=== PATIENT | female | born 1995 | race Caucasian/White ===

== ENCOUNTER 2022-03-28 16:19 | Emergency (ER) | payer MEDICAID, SELFPAY ==
[2022-03-28 16:49] VITALS: BP 128/74; PULSE 105; RESP 18; TEMP 37.6; O2SAT 99; BMI 32.2
--- NOTE | 2022-03-28 18:10 | ECG_ITS ---
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 Measurements Intervals [place] Rate: 78 P: 65 [place]: 165 QRS: 79 QRSD: 91 T: 72 QT: 391 QTc: 447 Interpretive Statements SINUS RHYTHM No previous ECG available for comparison Electronically Signed On 03-28-2022 19:41:00 CDT by Moe Mckeon M.D. [id number]
--- NOTE | 2022-03-28 18:11 | ED_ITS ---
HPI - Dizziness General: Chief Complaint: Dizziness Stated Complaint: Weakness, cant eat Time Seen by Provider: 03/28/22 17:42 Source: patient Mode of arrival: ambulatory Limitations: no limitations History of Present Illness: HPI Narrative: This patient presents to the emergency department because she had an episode where she felt lightheaded transiently with position change this evening. Over the past weeks she has had which she states is approximately 30+ pound weight lo ss. She states that sometimes when she eats she feels like she cannot swallow well. And feels like she gets full easily. She states that she had episodes like this in the past and told she had a polyp. She states that she was admitted to a mental health facility in November and put on medication she has not taken before but she does know where that is a factor in her current presentation or not. She does admit to having ongoing anxiety which is even made worse by the fact is that she feels like she is losing too much weight and wonders why that is occurring. She denies any change in her bowel habits to include bloody stools, melanotic stools etc. She states that she is no history of thyroid dysfunction. She does smoke tobacco but denies alcohol. No street drugs. She denies stimulants or excessive caffeine etc. She lives with her children and her spouse. She denies any history of syncope, palpitations chest pain etc. She is currently on her menstrual period. She relates that she has a history of diabetes and has episodes of tingling in her extremities and time to time but sometimes this is when she has an anxiety attack. Other times she has excessive paresthesias or tingling in her lower extremities not associated with what she deems as panic attacks. MD elicited complaint: lightheadedness Associated symptoms: Denies chest pain, chills, headache(s), nausea, nasal congestion, palpitations, syncope or vomiting Associated neuro symptoms: Reports numbness in extremities Review of Systems Const: Denies: fever(s), chills or body aches Eyes: Denies: change in vision ENMT: Denies: throat pain, odynophagia, hoarseness, dental pain or nasal congestion Card: Denies: chest pain, palpitations, irregular heart rhythm, syncope or pre-syncope Resp: Denies: dyspnea, productive cough or non-productive cough GI: Denies: abdominal pain, nausea, vomiting or hematemesis : Denies: flank pain, difficulty voiding, dysuria or urinary frequency Musc: Denies: neck pain, back pain, extremity pain or extremity swelling Skin/Breast: Denies: rash Neuro: Reports: numbness in extremities; Denies: headache(s), weakness in extremities, vertigo or Slurred speech present Psych: Reports: anxiety, depression, mood swings, panic attacks and sleeping less; Denies: visual hallucinations, auditory hallucinations or suicidal ideation Endo: Denies: polyuria or polydipsia All/Imm: Denies: urticaria PFSH ED PFSH: Social History Smoking and tobacco status: never smoked Physical Exam Const: COMMON NORMALS: patient oriented x3 GENERAL APPEARANCE: anxious HENMT: COMMON NORMALS: normocephalic, Normal nasal mucous membranes and turbinates present and moist oral mucous membranes HEAD & SCALP: normocephalic NOSE: Normal nasal mucous membranes and turbinates present Eye: COMMON NORMALS: Equal, round and reactive pupils present, EOMs intact bilaterally and conjunctivae normal CONJUNCTIVA: Yes conjunctivae normal PUPIL: Yes Equal, round and reactive pupils present Neck/C-Spine: COMMON NORMALS: full ROM, supple, Thyroid normal and No carotid bruits THYROID: Thyroid normal Chest: COMMONS NORMALS: normal inspection of the chest Resp: COMMON NORMALS: normal respiratory effort, No use of accessory muscles and clear to auscultation bilaterally AUSCULTATION: clear to auscultation bilaterally Cardio: COMMON NORMALS: regular rate, regular rhythm, No gallops present (Cardio), No murmurs present (Cardio) and Peripheral pulses 2+ throughout RATE: regular rate RHYTHM: regular rhythm PERIPHERAL PULSES: Peripheral pulses 2+ throughout GI: COMMON NORMALS: Normal to inspection, nondistended, normoactive bowel sounds present, Soft to palpation and non-tender PALPATION: Yes Soft to palpation : COMMON NORMALS: Yes no CVA tenderness BLADDER/KIDNEY EXAM: Yes no CVA tenderness Back/Pelvis: COMMON NORMALS: no CVA tenderness, thoracic and lumbar spine normal to inspection, no thoracic nor lumbar tenderness and thoraco-lumbar ROM normal Extremity: COMMON NORMALS: normal to inspection Neuro: COMMON NORMALS: patient oriented x3 Course Reevaluation(s): Reevaluation #1: Patient is currently clinically stable. No new findings on reevaluation. I discussed findings with patient and recommendations for follow-up. Time: 20:30 Vital Signs: Vital signs: Vital Signs Temperature 99.6 F 03/28/22 16:49 Pulse Rate 98 03/28/22 20:00 Respiratory Rate 18 03/28/22 16:49 Blood Pressure 117/61 03/28/22 20:00 Pulse Oximetry 100 03/28/22 20:00 MDM - Dizziness Medical Decision Making Patient's clinical and ancillary evaluation in the emergency department are unrevealing for any ongoing acute pathology at this time. Resting EKG is reassuring and her monitor did not reveal any evidence of arrhythmias. Her screening laboratories this evening are also reassuring without any evidence of electrolyte perturbation, anemia etc. It is unclear as to the etiology of her swallowing whether its physical abnormality or more mental health related etc. The neck step given that she is clinically stable at this time will be referral for endoscopy. She will also need a primary [place] health care facility for further follow-up and referral as indicated. Beto current findings with patient and also advised her of follow-up recommendations. She acknowledged our discussion. Stable for discharge at this time. Consultation to clinical social worker performed. Medical Records I reviewed the patient's medical records. Lab Data I reviewed the patient's lab results. Urinalysis results represents current status of menstruation. : 03/28/22 18:55 03/28/22 18:55 Laboratory Results WBC 8.6 10^3/uL (4.0-10.0) 03/28/22 18:55 RBC 4.65 10^6/uL (4.1-5.3) 03/28/22 18:55 Hgb 13.2 g/dL (11.5-15.3) 03/28/22 18:55 Hct 37.5 % (37.0-47.0) 03/28/22 18:55 MCV 80.6 fl (81-99) L 03/28/22 18: MCH 28.4 pg (28.0-34.0) 03/28/22 18: MCHC 35.2 g/dL (30.0-36.0) 03/28/22 18:55 RDW 13.2 % (12.1-15.1) 03/28/22 18:55 Plt Count 259 10^3/cmm (130-400) 03/28/22 18:55 MPV 10.2 fL (7.4-10.4) 03/28/22 18:55 Neut % (Auto) 58.7 % 03/28/22 18:55 Lymph % (Auto) 34.3 % 03/28/22 18:55 [place] % (Auto) 4.9 % 03/28/22 18:55 Eos % (Auto) 1.1 % 03/28/22 18:55 Baso % (Auto) 0.6 % 03/28/22 18:55 Neut # (Auto) 5.03 10^3/uL (1.8-7.7) 03/28/22 18:55 Lymph # (Auto) 2.9 10^3/uL (0.8-4.8) 03/28/22 18:55 [place] # (Auto) 0.4 10^3/uL (0.2-0.9) 03/28/22 18:55 Eos # (Auto) 0.1 10^3/uL (0.0-0.8) 03/28/22 18:55 Baso # (Auto) 0.1 10^3/uL (0.0-0.1) 03/28/22 18:55 Nucleated RBC % (auto) 0 % 03/28/22 18: Nucleated RBCs # 0.0 /100WBC 03/28/22 18:55 Sodium 140 mmol/L (136-145) 03/28/22 18:55 Potassium 4.0 mmol/L (3.5-5.1) 03/28/22 18:55 Chloride 102 mmol/L (98-107) 03/28/22 18:55 Carbon Dioxide 22 mmol/L (22-29) 03/28/22 18:55 Anion Gap 20.0 (5-19) H 03/28/22 18:55 BUN 9 mg/dL (6-20) 03/28/22 18:55 Creatinine 0.8 mg/dL (0.5-0.9) 03/28/22 18:55 GFR Calculation 86.0 mL/min (90-130) L 03/28/22 18:55 Glucose 79 mg/dL (65-115) 03/28/22 18:55 Calculated Osmolality 288 mOsm/kg (285-295) 03/28/22 18:55 Calcium 10.0 mg/dL (8.5-10.5) 03/28/22 18:55 Total Bilirubin 0.3 mg/dL (0.15-1.2) 03/28/22 18:55 AST 18 U/L (0-32) 03/28/22 18:55 ALT 20 U/L (0-33) 03/28/22 18:55 Alkaline Phosphatase 71 IU/L (35-105) 03/28/22 18:55 Total Protein 7.7 g/dL (6.6-8.7) 03/28/22 18:55 Albumin 5.2 g/dL (3.5-5.2) 03/28/22 18:55 Globulin 2.5 g/dL (1.3-4.6) 03/28/22 18:55 TSH 0.93 uIU/mL (0.27-4.20) 03/28/22 18:55 HCG, Qual Negative (Negative) 03/28/22 19:45 Urine Color Yellow (Yellow) 03/28/22 19:45 Urine Appearance Hazy (CLEAR) A 03/28/22 19:45 Urine pH 5 (5-7) 03/28/22 19:45 Ur Specific [place] 1.020 (1.005-1.030) 03/28/22 19:45 Urine Protein 1+ (Negative) H 03/28/22 19:45 Urine Glucose (UA) Norm (Normal) 03/28/22 19:45 Urine Ketones 3+ (Negative) H 03/28/22 19:45 Urine Blood 3+ (Negative) H 03/28/22 19:45 Urine Nitrate Negative (Negative) 03/28/22 19:45 Urine Bilirubin 1+ (Negative) H 03/28/22 19:45 Urine Urobilinogen 1 mg/dL (Negative) H 03/28/22 19:45 Ur Leukocyte Esterase Negative (Negative) 03/28/22 19:45 Urine RBC >100 /hpf (0-2) H 03/28/22 19:45 Urine WBC 0-4 /hpf (0-5) H 03/28/22 19:45 Ur Squamous Epith Cells 5-10 /hpf (0-5) H 03/28/22 19:45 Amorphous Sediment Not Reportable 03/28/22 19:45 Urine Bacteria Trace /hpf (NONE) 03/28/22 19:45 Urine Mucus 1+ /hpf 03/28/22 19:45 EKG Data EKG 1: I personally reviewed and interpreted this EKG as follows: EKG interpretation time: 18:49 Interpretation: Patient has normal sinus rhythm. Ventricular rate of 78 bpm. [place] intervals normal. QRS duration normal. QTc is within normal range. [place] are normal as well. No acute ST-T wave changes noted. Discharge Plan Discharge Patient Disposition: Home Clinical Impression: Abnormal swallowing Condition: Stable Prescriptions: No Action doxycycline hyclate 100 mg tablet 100 mg PO BID 10 Days Qty: 20 0RF Discharge Orders: Discharge ED (Routine); Ordered 03/28/22 Ordered By: Ho Del Valle Discharge Diet: Low Cholesterol, GI Soft and Full LIquid Discharge Activity: Increase activity as tolerated Patient Instructions: Opioid Safety Activity Restrictions/Additional Instructions: Continue with efforts to use protein shakes and other full liquid diet to ensure adequate nutrition. Also purchase sports drinks to help supplement electrolytes. director of ancillary services and case management should be contacting you in the coming week to discuss referral for endoscopy. Should you develop persistent worsening or any other concerning symptoms return to this or the nearest emergency department. Arrange follow-up with a primary care physician for ongoing care. Coding Level of Care Code ED Cashier Courtesy Booth for Chg Fwd Exam Comprehensive
[2022-03-28 18:53] VITALS: BP 117/76; PULSE 99; O2SAT 100
[2022-03-28 19:00] VITALS: BP 117/76; PULSE 99; O2SAT 100
[2022-03-28] MEDS: sodium chloride 0.9% 1,000 ML 999 ML IV (19:06)
[2022-03-28 19:08] LABS: Basophils # 0.1 10^3/uL (0.0-0.1); Basophils % 0.6 %; Eosinophils # 0.1 10^3/uL (0.0-0.8); Eosinophils % 1.1 %; Hematocrit 37.5 % (37.0-47.0); Hemoglobin 13.2 g/dL (11.5-15.3); Lymphocytes # 2.9 10^3/uL (0.8-4.8); Lymphocytes % 34.3 %; Mean Corpuscular HGB Conc 35.2 g/dL (30.0-36.0); Mean Corpuscular Hemoglobin 28.4 pg (28.0-34.0); Mean Corpuscular Volume 80.6 fl (81-99); Mean Platelet Volume 10.2 fL (7.4-10.4); Monocytes # 0.4 10^3/uL (0.2-0.9); Monocytes % 4.9 %; Neutrophils # 5.03 10^3/uL (1.8-7.7); Neutrophils % 58.7 %; Nucleated Red Blood Cells % 0 %; Platelet Count 259 10^3/cmm (130-400); Red Blood Count 4.65 10^6/uL (4.1-5.3); Red Cell Distribution Width 13.2 % (12.1-15.1); White Blood Count 8.6 10^3/uL (4.0-10.0)
[2022-03-28 19:35] LABS: Alanine Aminotransferase 20 U/L (0-33); Albumin Level 5.2 g/dL (3.5-5.2); Alkaline Phosphatase 71 IU/L (35-105); Aspartate Amino Transferase 18 U/L (0-32); Blood Urea Nitrogen 9 mg/dL (6-20); Carbon Dioxide 22 mmol/L (22-29); Chloride 102 mmol/L (98-107); Globulin 2.5 g/dL (1.3-4.6); Glucose 79 mg/dL (65-115); Osmolality Calculated 288 mOsm/kg (285-295); Sodium 140 mmol/L (136-145); Thyroid Stimulating Hormone 0.93 uIU/mL (0.27-4.20); Total Bilirubin 0.3 mg/dL (0.15-1.2); Total Protein 7.7 g/dL (6.6-8.7)
[2022-03-28 20:00] VITALS: BP 117/61; PULSE 98; O2SAT 100
[2022-03-28 20:14] LABS: HCG Qualitative Urine. Negative (Negative)
[2022-03-28 20:17] LABS: Add Urine Microscopic? YES; Bilirubin Urine 1+ (Negative); Blood Urine 3+ (Negative); Glucose Urine UA Norm (Normal); Ketones Urine 3+ (Negative); Leukocyte Esterase Urine Negative (Negative); Nitrate Urine Negative (Negative); Protein Urine 1+ (Negative); Urine Appearance Hazy (CLEAR); Urine Color Yellow (Yellow); Urobilinogen Urine 1 mg/dL (Negative); pH Urine 5 (5-7)
[2022-03-28 20:18] LABS: Add Urine Culture? Yes; Bacteria Urine TRACE /hpf; Mucus Urine 1+ /hpf; RBC Urine >100 /hpf (0-2); WBC Urine 0-4 /hpf (0-5)
--- NOTE | 2022-03-30 15:39 | DCPLANNER ---
Addendum entered by Anahi Salguero 05/16/22 12:40: patient did attend appointment Addendum entered by Anahi Salguero 04/06/22 10:52: Patient has a follow up appointment scheduled for March at 2:[address] Gaitan at [facility] surgery. Clinic will call patient with appointment information. Original Note: manager internet had message to schedule a follow up appointment for with general surgery. manager internet sent patients information to the front office staff at general surgery. Patients information will be printed and reviewed. Clinic will call patient with appointment information.
== END 2022-03-28 20:55 | disposition home or self-care (01) ==
PROVIDERS: Emergency Provider Emergency Medicine
DX: R13.10 Dysphagia, unspecified (principal)
CPT/HCPCS: 80053; 81001; 81025; 84443; 85025; 87086; 93005; 96360; 99284; J7030

== ENCOUNTER → 2022-04-12 13:48 | Outpatient (BNVA) | payer MEDICAID, SELFPAY | PROVIDERS: Visit Provider Surgery | DX: R13.10 Dysphagia, unspecified (principal) | CPT/HCPCS: 99213 ==

== ENCOUNTER → 2022-04-16 12:01 | Outpatient (BNVA) | payer MEDICAID, SELFPAY | PROVIDERS: Visit Provider Registered Nurse Neonatal Intensive Care | DX: Z20.822 Contact with and (suspected) exposure to COVID-19 (principal) | CPT/HCPCS: 87635 ==

== ENCOUNTER 2022-05-01 22:00 | Emergency (ER) | payer MEDICAID, SELFPAY ==
[2022-05-01 22:03] VITALS: BP 124/82; PULSE 100; RESP 16; TEMP 36.6; O2SAT 100; BMI 31.0
--- NOTE | 2022-05-01 22:19 | ECG_ITS ---
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 Measurements Intervals [place] Rate: 87 P: 32 [place]: 168 QRS: 59 QRSD: 96 T: 47 QT: 378 QTc: 456 Interpretive Statements SINUS RHYTHM Compared to ECG 03/28/2022 18:47:23 No significant changes Electronically Signed On 05-01-2022 23:32:46 CDT by Moe Mckeon M.D. [id number]
[2022-05-01 22:44] LABS: Basophils % 0.4 %; Eosinophils # 0.2 10^3/uL (0.0-0.8); Eosinophils % 2.4 %; Hematocrit 37.9 % (37.0-47.0); Hemoglobin 12.4 g/dL (11.5-15.3); Lymphocytes # 2.8 10^3/uL (0.8-4.8); Mean Corpuscular HGB Conc 32.7 g/dL (30.0-36.0); Mean Corpuscular Hemoglobin 27.8 pg (28.0-34.0); Mean Platelet Volume 10.2 fL (7.4-10.4); Monocytes # 0.4 10^3/uL (0.2-0.9); Monocytes % 5.5 %; Neutrophils # 4.32 10^3/uL (1.8-7.7); Neutrophils % 55.4 %; Nucleated Red Blood Cells % 0 %; Platelet Count 226 10^3/cmm (130-400); Red Blood Count 4.46 10^6/uL (4.1-5.3); Red Cell Distribution Width 12.7 % (12.1-15.1); White Blood Count 7.8 10^3/uL (4.0-10.0)
[2022-05-01 23:09] LABS: Alanine Aminotransferase 21 U/L (0-33); Albumin Level 4.4 g/dL (3.5-5.2); Alkaline Phosphatase 71 IU/L (35-105); Anion Gap 16.7 (5-19); Aspartate Amino Transferase 17 U/L (0-32); Blood Urea Nitrogen 6 mg/dL (6-20); Calcium 9.2 mg/dL (8.5-10.5); Carbon Dioxide 24 mmol/L (22-29); Chloride 102 mmol/L (98-107); Globulin 2.3 g/dL (1.3-4.6); Glucose 91 mg/dL (65-115); Osmolality Calculated 285 mOsm/kg (285-295); Potassium 3.7 mmol/L (3.5-5.1); Sodium 139 mmol/L (136-145); Total Bilirubin 0.2 mg/dL (0.15-1.2); Total Protein 6.7 g/dL (6.6-8.7)
[2022-05-01 23:13] LABS: Troponin(5th) Baseline 6 ng/L (0-10)
--- NOTE | 2022-05-01 23:58 | W.ED.CHESTPA ---
HPI - Chest Pain General: Chief Complaint: Chest Pain Stated Complaint: Chest Pain Time Seen by Provider: 05/01/22 23:58 History of Present Illness: 27-year-old female comes in today for complaints of chest discomfort in the right side of her chest wall. Patient also reports increased anxiety due to a surgery coming up on 16 May. Patient reports that she had a polyp in the back of her throat that she is having removed that will make it hard for her to swallow at times. Patient appears in no acute distress. Patient appears in no pain. Patient appears nontoxic. Patient also has a history of anxiety disorder. Associated symptoms: Deny dyspnea, fever(s), nausea or vomiting Risk Factors: Coronary artery disease risk factors: diabetes Review of Systems General: Reports: 10 or more systems reviewed and unremarkable except in HPI and below Const: Denies: fever(s) Card: Reports: chest pain Resp: Denies: dyspnea GI: Denies: nausea or vomiting PFSH ED PFSH: Medical History History of esophageal dilatation Trouble swallowing Surgical History History of tonsillectomy and adenoidectomy Hx of appendectomy 2008 Hx of section Social History Smoking and tobacco status: never smoked Female Reproductive History: Date of last menstrual period: 05/01/22 Physical Exam Const: COMMON NORMALS: alert HENMT: COMMON NORMALS: normocephalic HEAD & SCALP: normocephalic THROAT: posterior oropharynx normal Neck/C-Spine: COMMON NORMALS: full ROM Resp: COMMON NORMALS: normal respiratory effort and clear to auscultation bilaterally AUSCULTATION: clear to auscultation bilaterally Cardio: COMMON NORMALS: regular rate and regular rhythm RATE: regular rate RHYTHM: regular rhythm Extremity: COMMON NORMALS: no pedal edema Neuro: SENSORIUM/ORIENTATION: Yes alert Skin: COMMON NORMALS: no rashes or lesions noted GENERAL SKIN EXAM: no rashes or lesions noted Course Vital Signs: Vital signs: Vital Signs Temperature 97.9 F 05/01/22 22:03 Pulse Rate 84 05/02/22 00:02 Respiratory Rate 18 05/02/22 00:02 Blood Pressure 110/68 05/02/22 00:02 Pulse Oximetry 98 05/02/22 00:02 Oxygen Delivery Me thod 05/02/22 00:02 MDM - Chest Pain Medical Decision Making 27-year-old female comes in today with complaints of chest discomfort on the right side of her chest wall. Patient reports deep breath will sometimes improve the pain but other times will worsen the pain. Patient reports symptoms have been over the last 2 to 3 days. On exam patient appears nontoxic. Patient appears anxious. Heart tones are normal. Lungs are clear to auscultation. No edema is noted in the lower extremities. Differential diagnosis includes but not limited to ACS, anxiety, costochondritis. CBC CMP and troponin were unremarkable. EKG showed normal sinus rhythm. I believe the patient's anxiety is increased tonight due to recent changes to move her surgery up from May to next week. Patient was given 0.5 mg of alprazolam for her anxiety. Patient agreed to follow-up with primary care for further evaluation and treatment. Patient to return to the ER for worsening symptoms or new concerns. Lab Data : 05/01/22 22:36 05/01/22 22:36 Laboratory Results WBC 7.8 10^3/uL (4.0-10.0) 05/01/22 22:36 RBC 4.46 10^6/uL (4.1-5.3) 05/01/22 22:36 Hgb 12.4 g/dL (11.5-15.3) 05/01/22 22:36 Hct 37.9 % (37.0-47.0) 05/01/22 22:36 MCV 85.0 fl (81-99) 05/01/22 22:36 MCH 27.8 pg (28.0-34.0) L 05/01/22 22:36 MCHC 32.7 g/dL (30.0-36.0) 05/01/22 22:36 RDW 12.7 % (12.1-15.1) 05/01/22 22:36 Plt Count 226 10^3/cmm (130-400) 05/01/22 22:36 MPV 10.2 fL (7.4-10.4) 05/01/22 22:36 Neut % (Auto) 55.4 % 05/01/22 22:36 Lymph % (Auto) 36.0 % 05/01/22 22:36 [place] % (Auto) 5.5 % 05/01/22 22:36 Eos % (Auto) 2.4 % 05/01/22 22:36 Baso % (Auto) 0.4 % 05/01/22 22:36 Neut # (Auto) 4.32 10^3/uL (1.8-7.7) 05/01/22 22:36 Lymph # (Auto) 2.8 10^3/uL (0.8-4.8) 05/01/22 22:36 [place] # (Auto) 0.4 10^3/uL (0.2-0.9) 05/01/22 22:36 Eos # (Auto) 0.2 10^3/uL (0.0-0.8) 05/01/22 22:36 Baso # (Auto) 0.0 10^3/uL (0.0-0.1) 05/01/22 22:36 Nucleated RBC % (auto) 0 % 05/01/22 22:36 Nucleated RBCs # 0.0 /100WBC 05/01/22 22:36 Sodium 139 mmol/L (136-145) 05/01/22 22:36 Potassium 3.7 mmol/L (3.5-5.1) 05/01/22 22:36 Chloride 102 mmol/L (98-107) 05/01/22 22:36 Carbon Dioxide 24 mmol/L (22-29) 05/01/22 22:36 Anion Gap 16.7 (5-19) 05/01/22 22:36 BUN 6 mg/dL (6-20) 05/01/22 22:36 Creatinine 0.8 mg/dL (0.5-0.9) 05/01/22 22:36 GFR Calculation 86.0 mL/min (90-130) L 05/01/22 22:36 Glucose 91 mg/dL (65-115) 05/01/22 22:36 Calculated Osmolality 285 mOsm/kg (285-295) 05/01/22 22:36 Calcium 9.2 mg/dL (8.5-10.5) 05/01/22 22:36 Total Bilirubin 0.2 mg/dL (0.15-1.2) 05/01/22 22:36 AST 17 U/L (0-32) 05/01/22 22:36 ALT 21 U/L (0-33) 05/01/22 22:36 Alkaline Phosphatase 71 IU/L (35-105) 05/01/22 22:36 Troponin T Baseline 6 ng/L (0-10) 05/01/22 22:36 Total Protein 6.7 g/dL (6.6-8.7) 05/01/22 22:36 Albumin 4.4 g/dL (3.5-5.2) 05/01/22 22:36 Globulin 2.3 g/dL (1.3-4.6) 05/01/22 22:36 Discharge Plan Discharge Patient Disposition: Home Clinical Impression: Chest pain, non-cardiac Condition: Stable Prescriptions: No Action olanzapine [Zyprexa] 5 mg tablet 5 mg PO ONCE clonazepam [Klonopin] 0.5 mg tablet 0.5 mg PO BID Discharge Orders: Discharge ED (Routine); Ordered 05/02/22 Ordered By: Gil Doe Discharge Diet: Usual diet Discharge Activity: Increase activity as tolerated Patient Instructions: Noncardiac Chest Pain (ED) Activity Restrictions/Additional Instructions: Continue with routine care. Talk with primary care or behavioral health specialist regarding medication changes for better control of your anxiety. Return to the ER for worsening symptoms such as fever greater than 100.4, increased shortness of breath, blood in sputum or new concerns. Coding Level of Care Code ED Keyboard Operator for Екатерина Thomas
[2022-05-02 00:02] VITALS: BP 110/68; PULSE 84; RESP 18; O2SAT 98
[2022-05-02] MEDS: ALPRAZolam 0.5 mg Tablet PO (00:07)
== END 2022-05-02 00:17 | disposition home or self-care (01) ==
PROVIDERS: Emergency Provider Nurse Practitioner Family
DX: R07.89 Other chest pain (principal)
CPT/HCPCS: 80053; 84484; 85025; 93005; 99284

== ENCOUNTER 2022-05-04 22:45 | Emergency (ER) | payer BC, MEDICAID, SELFPAY ==
[2022-05-04 22:51] VITALS: BP 143/89; PULSE 96; RESP 16; TEMP 36.5; O2SAT 99; BMI 30.9
--- NOTE | 2022-05-04 23:13 | W.ED.HA ---
HPI - Headache General: Chief Complaint: Headache Stated Complaint: Headache Time Seen by Provider: 05/04/22 23:05 History of Present Illness: 27-year-old female comes in today with complaints of headache/migraine. Patient reports she has had a history of migraines but has not had one for 2 to 3 years. Patient has recently moved to the area. Patient states that her migraines are similar to this headache. Patient appears nontoxic. Patient appears in mild to moderate pain. Patient is light sensitive. Associated symptoms: Deny fever(s) Review of Systems General: Reports: 10 or more systems reviewed and unremarkable except in HPI and below Const: Denies: fever(s) Neuro: Reports: headache(s) PFSH ED PFSH: Medical History History of esophageal dilatation Trouble swallowing Surgical History History of tonsillectomy and adenoidectomy Hx of appendectomy 2007 Hx of section Social History Smoking and tobacco status: never smoked Female Reproductive History: Date of last menstrual period: 05/04/22 Physical Exam Const: COMMON NORMALS: alert HENMT: COMMON NORMALS: atraumatic HEAD & SCALP: atraumatic Neck/C-Spine: COMMON NORMALS: full ROM Resp: COMMON NORMALS: normal respiratory effort Cardio: COMMON NORMALS: regular rate RATE: regular rate GI: COMMON NORMALS: Soft to palpation and non-tender PALPATION: Yes Soft to palpation Extremity: COMMON NORMALS: full ROM Neuro: SENSORIUM/ORIENTATION: Yes alert Skin: COMMON NORMALS: turgor normal GENERAL SKIN EXAM: turgor normal Course Vital Signs: Vital signs: Vital Signs Temperature 97.7 F 05/04/22 22:51 Pulse Rate 96 05/04/22 22:51 Respiratory Rate 16 05/04/22 22:51 Blood Pressure 143/89 05/04/22 22:51 Pulse Oximetry 99 05/04/22 22:51 Oxygen Delivery Me thod 05/04/22 22:51 MDM - Headache Medical Decision Making 27-year-old female comes in today with complaints of a migraine headache. Patient reports that she has not had a migraine headache in years but has recently moved to the area and now she has had 1. On exam patient has no focal neural deficits. Patient appears in moderate pain. Pupils are equal and reactive. Vital signs are normal except for some mild elevation of blood pressure at 143. Differential diagnosis includes but not limited to migraine headache, tension headache, malingering. Patient was given a dose of Toradol 30 mg with 10 mg of dexamethasone and 25 mg of promethazine. Patient reported improvement in headache and was released to home. Patient was prescribed naproxen and promethazine for recurrent headache. Discharge Plan Discharge Patient Disposition: Home Clinical Impression: Migraine Condition: Stable Prescriptions: New naproxen 500 mg tablet 500 mg PO BID PRN (Reason: migraine headache) Qty: 20 0RF promethazine 25 mg tablet 25 mg PO BID PRN (Reason: migraine headache) Qty: 20 0RF Rx Instructions: take with naproxen for migraine No Action olanzapine [Zyprexa] 5 mg tablet 5 mg PO ONCE clonazepam [Klonopin] 0.5 mg tablet 0.5 mg PO BID Discharge Orders: Discharge ED (Routine); Ordered 05/04/22 Ordered By: Gil Doe Discharge Diet: Usual diet Discharge Activity: Increase activity as tolerated Patient Instructions: Migraine Headache (ED) Activity Restrictions/Additional Instructions: Home and rest. Drink plenty of water. Take medication as needed for persistent or new migraine. Follow-up with primary care for further instruction. Return to ER for new concerns. Coding Level of Care Code ED Laundry Routeman for Екатерина Thomas Exam Comprehensive
[2022-05-04] MEDS: ketorolac 30 mg/mL INJ IM (23:25)
[2022-05-04] MEDS: dexamethasone 10 mg/mL INJ IM (23:26)
[2022-05-04] MEDS: promethazine 25 mg Tablet PO (23:26)
== END 2022-05-04 23:46 | disposition home or self-care (01) ==
PROVIDERS: Emergency Provider Nurse Practitioner Family
DX: G43.909 Migraine, unspecified, not intractable, without status migrainosus (principal)
CPT/HCPCS: 96372; 99284; J1100; J1885; Q0169

== ENCOUNTER 2022-05-16 06:39 | Day surgery (SDC) | payer BC, MEDICAID, SELFPAY ==
[2022-05-14 12:21] VITALS: BMI 30.2
[2022-05-16 06:58] VITALS: BP 115/81; PULSE 90; RESP 20; TEMP 36.2; O2SAT 99
[2022-05-16] MEDS: sodium chloride 0.9% 1,000 ML 30 ML IV (07:06)
[2022-05-16 07:16] LABS: OR HCG Qualitative Urine Negative (Negative)
--- NOTE | 2022-05-16 07:22 | W.PM.OPSUD ---
Surgery/Procedure H&P Update DATE OF PROCEDURE: May 16, 2022 DATE H&P PERFORMED: 04/12/22 PLANNED PROCEDURE: Operation Date: 05/16/22 08:15 Proposed Procedures p EGD 60361,R13.10(Not Applicable) - Paulino Gaitan DO
--- NOTE | 2022-05-16 07:54 | ANES.PREANE2 ---
Pre-Anesthetic Assessment Height/Weight: Height 1.52 m Weight 70.307 kg Temp Pulse Resp BP Pulse Ox O2 Del Method 97.1 F L 90 20 H 115/81 99 05/16/22 06:58 05/16/22 06:58 05/16/22 06:58 05/16/22 06:58 05/16/22 06:58 05/16/22 06:58 Preop Diagnosis: ABD pain Operation Date: 05/16/22 08:15 Proposed Procedures p EGD 07002,R13.10(Not Applicable) - Paulino Gaitan DO Familial anesthetic complications: none Was Beta Yanet taken within 24 hours: N/A Was Clonidine taken within 24 hours: N/A Last intake: Intake Last Liquid Date 05/15/22 Last Liquid Time 21:36 Last Solid Date 05/15/22 Last Solid Time 18:00 Last Intake: 21:30 Social Tobacco 1/2 pack(s) per day 10+ pack years Exam alert, oriented x 3, clear to auscultation bilaterally and regular rate & rhythm Airway Submandibular: within normal limits Cervical ROM: within normal limits Mallampati: Class I Dentition: full Pulmonary Asthma (mild, seasonal) CV/HEM None reported None reported Hepatic None reported GI Gastroesophageal Reflux Disease Metabolic None reported Musc/skel Lower Back Pain Neuropsych Anxiety, Bipolar and Depression Anesthetic Plan ASA status: 2 Anesthesia: MAC Risk of > 500 ml blood loss (7ml/kg in children): No Medications/Allergies Home Medications Medication Instructions Recorded Confirmed Last Taken Type clonazepam 0.5 mg tablet (Klonopin) 0.5 mg PO BID 04/12/22 05/16/22 05/14/22 History Allergies Allergy/AdvReac Type Severity Reaction Status Date / Time aripiprazole [From Abilify] Allergy rash/upset Verified 05/15/22 13:14 GI duloxetine [From Cymbalta] Allergy rash Verified 05/15/22 13:14 fentanyl Allergy trouble Verified 05/15/22 13:14 breathing fluoxetine [From Prozac] Allergy upset GI/ Verified 05/15/22 13:14 rash gabapentin Allergy black out Verified 05/15/22 13:14 Penicillins Allergy rash Verified 05/15/22 13:14 Sulfa (Sulfonamide Allergy rash Verified 05/15/22 13:14 Antibiotics) Current Medications Generic Name Dose Route Start Last Admin Trade Name Freq PRN Reason Stop Dose Admin Sodium Chloride 1,000 mls @ 30 mls/hr 05/16/22 07:00 05/16/22 07:06 Sodium Chloride 0.9% IV 05/17/22 06:59 30 mls/hr .Q24H LYSSA Administration PFSH Anesthesia Medical History History of esophageal dilatation Trouble swallowing Surgical History History of tonsillectomy and adenoidectomy Hx of appendectomy 2007 Hx of section Social History Smoking and tobacco status: never smoked Female Reproductive History Date of last menstrual period: 05/04/22 Data Anesthesia Cardiac Studies: No Data to Display
[2022-05-16 09:14] VITALS: BP 104/58; PULSE 96; RESP 18; TEMP 36.9; O2SAT 96
[2022-05-16 09:25] VITALS: BP 107/82; PULSE 85; RESP 18; TEMP 36.6; O2SAT 97
--- NOTE | 2022-05-16 09:46 | ANE.PACU2 ---
Inpatient post-anesthesia follow up: Airway intact: Yes Vital signs: Temperature 97.8 F Pulse Rate 85 Respiratory Rate 18 Blood Pressure 107/82 Pulse Oximetry 97 Oxygen Delivery Me thod Room Air Oxygen Flow Rate Fraction of Inspir ed Oxygen Hydration adequate: Yes Nausea and vomiting: No Pain level: 1 Mental status: Baseline
== END 2022-05-16 09:45 | disposition home or self-care (01) ==
PROVIDERS: Anesthesiology; Visit Provider Surgery
PROC: 0DJ08ZZ Inspection of Upper Intestinal Tract, Via Natural or Artificial Opening Endoscopic (ICD-10-PCS; CPT 43235; principal; 2022-05-16 08:15)
DX: K22.81 Esophageal polyp (principal); K21.9 Gastro-esophageal reflux disease without esophagitis; Z88.0 Allergy status to penicillin; Z88.2 Allergy status to sulfonamides
CPT/HCPCS: 43249; 43251; 81025; 84703; 88305; J0330; J2704; J7030

== ENCOUNTER 2022-05-17 21:10 | Emergency (ER) | payer BC, MEDICAID, SELFPAY | END 2022-05-17 21:13 | disposition left against medical advice (07) | PROVIDERS: Emergency Provider Family Medicine | DX: Z53.21 Procedure and treatment not carried out due to patient leaving prior to being seen by health care provider (principal) ==

== ENCOUNTER 2022-06-18 | Outpatient (RCR) | payer BC, MEDICAID, SELFPAY | END 2022-06-22 23:59 | disposition home or self-care (01) | LOC: SST | PROVIDERS: PCP Family Medicine; Visit Provider Family Medicine | DX: R13.10 Dysphagia, unspecified (principal) | CPT/HCPCS: 92610 ==

== ENCOUNTER 2022-07-08 09:45 | Emergency (ER) | payer BC, MEDICAID, SELFPAY ==
[2022-07-08 09:56] VITALS: BP 122/79; PULSE 98; TEMP 36.9; O2SAT 97; BMI 30.2
--- NOTE | 2022-07-08 10:05 | XRR_ITS ---
PROCEDURE INFORMATION: Exam: XR Chest Exam date and time: 07/08/2022 10:26 AM Age: 27 years old Clinical indication: Cough TECHNIQUE: Imaging protocol: Radiologic exam of the chest. Views: 2 views. COMPARISON: CR XR shoulder RT min 2V* [id number] 06/28/2022 8:30 AM FINDINGS: Lungs: Unremarkable. No consolidation. Pleural spaces: Unremarkable. No pleural effusion. No pneumothorax. Heart/Mediastinum: Unremarkable. No cardiomegaly. Bones/joints: Unremarkable. XR/XR chest 2V* [id number] IMPRESSION: No acute findings.
--- NOTE | 2022-07-08 10:05 | PC.NURSE ---
pt reports 4 days ago she was around her friend who had bronchitis. states yesterday she began sneezing and now has soreness of her chest and shoulders. pain present with deep breaths. denies cough, fever, abdominal pain, , or dyspnea. Lung sounds clear bilat. speech clear. speaking in complete sentences without difficulty. skin pink/warm/dry
[2022-07-08 10:08] VITALS: BP 135/74; PULSE 102; RESP 16; O2SAT 100
--- NOTE | 2022-07-08 10:09 | ED_ITS ---
HPI - General Adult General: Chief complaint: General Medical Stated complaint: Congestion, sinus pressure, SOB Time Seen by Provider: 07/08/22 10:03 History of Present Illness: 27-year-old female presenting today with diffuse body aches, feeling rundown, pleuritic chest pain. Patient states that her friend with bronchitis was recently around her. She notes that since being there she has had nasal congestion, sinus pressure, intermittent shortness of breath. Patient does note asthma. But states it is not acting up. She denies pain or swelling her lower extremities. She denies recent travel or recent surgeries. She denies history of blood clots. She is not on OCPs. She notes she is anxiety. Knows why her heart rate is running fast. She feels anxious today. Review of Systems General: Reports: 10 or more systems reviewed and unremarkable except in HPI and below PFSH ED PFSH: Medical History History of esophageal dilatation Psychiatric care Trouble swallowing Surgical History History of tonsillectomy and adenoidectomy Hx of appendectomy 2008 Hx of section Hx of endoscopy Social History Smoking and tobacco status: current every day smoker (pack and half ) Female Reproductive History: Date of last menstrual period: 05/04/22 Physical Exam Const: COMMON NORMALS: no acute distress, patient oriented x3 and alert GENERAL APPEARANCE: cooperative ORIENTATION/CONSCIOUSNESS: Yes awake, Yes oriented to person, Yes oriented to place and Yes oriented to time HENMT: COMMON NORMALS: normocephalic, atraumatic, external ears normal, Normal external nose present and moist oral mucous membranes HEAD & SCALP: normal to inspection, normocephalic and atraumatic NOSE: Normal external nose present GENERAL EAR: hearing grossly impaired EXTERNAL EAR: Yes external ears normal Eye: COMMON NORMALS: Equal, round and reactive pupils present, EOMs intact bilaterally, conjunctivae normal and no scleral icterus GENERAL EYE: appearance normal, both eyes and all related structures EYELID: eyelids normal CONJUNCTIVA: Yes conjunctivae normal SCLERA: sclerae normal PUPIL: Yes Equal, round and reactive pupils present Neck/C-Spine: COMMON NORMALS: full ROM, supple and no JVD GENERAL: Yes normal visual inspection Lymph: LYMPHATIC: no lymphadenopathy noted and no lymphedema noted Chest: COMMONS NORMALS: normal inspection of the chest Resp: COMMON NORMALS: normal respiratory effort, No retractions and No use of accessory muscles Cardio: COMMON NORMALS: no JVD, regular rate and regular rhythm RATE: regular rate RHYTHM: regular rhythm GI: COMMON NORMALS: Normal to inspection, nondistended, normoactive bowel sounds present : COMMON NORMALS: Yes no CVA tenderness BLADDER/KIDNEY EXAM: Yes no CVA tenderness Back/Pelvis: COMMON NORMALS: no CVA tenderness and thoracic and lumbar spine normal to inspection Extremity: COMMON NORMALS: normal to inspection, full ROM and capillary refill normal GENERAL: Yes normal exam except as noted Neuro: COMMON NORMALS: patient oriented x3, CN's II-XII intact bilaterally, moves all extremities, no focal motor deficits, no sensory deficits noted and gait normal SENSORIUM/ORIENTATION: Yes alert, Yes oriented to person, Yes oriented to place and Yes oriented to time Psych: COMMON NORMALS: mental status grossly normal, Normal thought process present, cooperative and normal affect THOUGHT PROCESS: Normal thought process present Skin: COMMON NORMALS: no rashes or lesions noted and no wounds GENERAL SKIN EXAM: no rashes or lesions noted Course Vital Signs: Vital signs: Vital Signs Temperature 98.4 F 07/08/22 09:56 Pulse Rate 91 07/08/22 11:00 Respiratory Rate 16 07/08/22 10:08 Blood Pressure 111/82 07/08/22 11:00 Pulse Oximetry 97 07/08/22 11:00 Oxygen Delivery Ny thod 07/08/22 09:56 [facility] - General Adult Medical Decision Making 27-year-old female presenting today with viral illness. Vitals with slight tachycardia. Likely related to patient's anxiety. Patient with normal vital signs upon triage check-in. Lungs are with minor crackles. Otherwise clear to auscultation. No evidence of peripheral edema to suggest pulmonary embolism or DVT. Will obtain chest x-ray and discharge with likely viral syndrome diagnosis. Lab Data Radiology Impressions Chest X-Ray 07/08/22 10:05 IMPRESSION: No acute findings. Discharge Plan Discharge Patient Disposition: Home Clinical Impression: Viral illness Condition: Stable Prescriptions: New diclofenac sodium 75 mg tablet,delayed release (DR/EC) 75 mg PO BID Qty: 30 0RF No Action clonazepam [Klonopin] 0.5 mg tablet 0.5 mg PO BID Discharge Orders: Discharge ED (Routine); Ordered 07/08/22 Ordered By: Guy Lorenz Referrals: Shannan Ramos DO [Primary Care Provider] - Patient Instructions: Viral Syndrome (ED) Coding Level of Care Code ED Cabin Furnishings Installer for Chg Fwd Exam Comprehensive
[2022-07-08 11:00] VITALS: BP 111/82; PULSE 91; O2SAT 97
[2022-07-08 12:15] VITALS: BP 92/64; PULSE 83; O2SAT 96
== END 2022-07-08 12:16 | disposition home or self-care (01) ==
PROVIDERS: Emergency Provider Emergency Medicine; PCP Family Medicine
DX: B34.9 Viral infection, unspecified (principal); F17.210 Nicotine dependence, cigarettes, uncomplicated
CPT/HCPCS: 71046; 99283

== ENCOUNTER 2022-08-12 10:39 | Emergency (ER) | payer BC, MEDICAID, SELFPAY ==
[2022-08-12 10:51] VITALS: BP 127/87; PULSE 106; RESP 18; TEMP 37.1; O2SAT 99
--- NOTE | 2022-08-12 11:48 | CTR_ITS ---
PROCEDURE INFORMATION: Exam: CT Right Lower Extremity Without Contrast, Hip Exam date and time: 08/12/2022 12:33 PM Age: 27 years old Clinical indication: Injury or trauma; Fall; Blunt trauma; Hip; Right; Additional info: Fell on right greater trochanter--eval occult FX TECHNIQUE: Imaging protocol: CT of the Right lower extremity without contrast was performed. Exam focused on the hip. Radiation optimization: All CT scans at this facility use at least one of these dose optimization techniques: automated exposure control; mA and/or kV adjustment per patient size (includes targeted exams where dose is matched to clinical indication); or iterative reconstruction. COMPARISON: CR XR hip RT 2-3V wo/w pel* [id number] 08/07/2022 11:59 AM RADIATION DOSE METRICS: Total DLP (mGy-cm): 229.83 FINDINGS: Bones/joints: No acute fracture or dislocation. Soft tissues: Minimal edema noted in the right medial gluteal fold. CT/CT hip RT wo con* [id number] IMPRESSION: 1. No acute fracture. 2. Minimal edema noted in the right medial gluteal fold.
--- NOTE | 2022-08-12 11:49 | W.ED.FALL ---
HPI - Fall General: Chief Complaint: Fall Stated Complaint: Swelling in left leg Time Seen by Provider: 08/12/22 11:38 History of Present Illness: 27-year-old female reports on the , earlier this week, she slipped while wearing socks in her kitchen. She fell directly on her right greater trochanter region. She has had pain there ever since. She reports that she has been afraid to walk or bear weight and so has been using a wheelchair. She went for an x-ray which was reportedly negative. She went for a follow-up appointment with her doctor who asked her to give it more time before considering an MRI or other advanced imaging. She states she came to the ER last night and waited but due to the congestion in the emergency department decided to come back today. She reports some swelling in her right ankle and soreness in the right ankle. She believes she might of sprained her ankle possibly during the fall. She reports that while using the wheelchair her friend dropped her on her right hip area again trying to transfer to the vehicle. Over the phone she was told if she had any swelling or leg pain she could have a blood clot and she began to get concerned about this. She has no history of DVT or PE, no calf pain, no increased varicosities, no warmth or discoloration of the right lower extremity. Her pain is still directly over the right greater trochanter. Palpation over the right greater trochanter causes significant tenderness. She says she did have a bruise there but it is gone away. Associated symptoms-after fall: Reports difficulty walking; Denies headache(s) Review of Systems General: Reports: 10 or more systems reviewed and unremarkable except in HPI and below Const: Denies: fever(s) Musc: Reports: extremity pain (Right hip), joint pain (Patient has some soreness in the right ankle) and joint swelling (Right ankle a little bit swollen); Denies: extremity swelling, joint redness, joint warmth or muscle weakness Skin/Breast: Denies: rash or erythema Neuro: Reports: difficulty walking; Denies: headache(s), numbness in extremities, weakness in extremities or lack of coordination PFSH ED PFSH: Medical History History of esophageal dilatation Psychiatric care Trouble swallowing Surgical History History of tonsillectomy and adenoidectomy Hx of appendectomy 2007 Hx of section Hx of endoscopy Social History Smoking and tobacco status: current every day smoker (pack and half ) Female Reproductive History: Date of last menstrual period: 05/04/22 Physical Exam Const: COMMON NORMALS: no limitations, alert and well nourished EXAM LIMITATIONS: no altered mental status GENERAL APPEARANCE: cooperative and well developed ORIENTATION/CONSCIOUSNESS: Yes awake; not confused Neck/C-Spine: COMMON NORMALS: no JVD GENERAL: Yes normal visual inspection and Yes trachea midline Resp: COMMON NORMALS: normal respiratory effort and No use of accessory muscles EFFORT & INSPECTION: Yes able to speak in complete sentences and Yes symmetric chest movement Cardio: COMMON NORMALS: no JVD, regular rate and regular rhythm RATE: regular rate RHYTHM: regular rhythm GI: INSPECTION: Yes normal to inspection Extremity: RIGHT LOWER EXTREMITY: Yes hip joint Right hip: Yes inspection (Normal inspection of the right hip, no bruising, no deformities, no swellin), Yes palpation (Tenderness over the right greater trochanter), Yes ROM (Patient does not want me to perform range of motion but I was able to do ax) and Yes neurovascular exam (Normal), Yes lower leg (No evidence of DVT) and Yes foot & digits (There is some mild swelling in the right ankle joint. The lateral and medi) Neuro: COMMON NORMALS: moves all extremities, no focal motor deficits and no sensory deficits noted SENSORIUM/ORIENTATION: Yes alert Psych: COMMON NORMALS: mental status grossly normal, Normal thought process present, cooperative, normal affect and speech normal SPEECH: Yes normal speech THOUGHT PROCESS: Normal thought process present Skin: COMMON NORMALS: no rashes or lesions noted, turgor normal and no jaundice GENERAL SKIN EXAM: no rashes or lesions noted and turgor normal Course Vital Signs: Vital signs: Vital Signs Temperature 98.7 F 08/12/22 10:51 Pulse Rate 96 08/12/22 12:12 Respiratory Rate 18 08/12/22 10:51 Blood Pressure 116/78 08/12/22 12:12 Pulse Oximetry 96 08/12/22 12:12 Oxygen Delivery Sd thod 08/12/22 12:12 MDM - Fall Medical Decision Making Suspected contusion of the soft tissue overlying the right greater trochanter. Less likely occult fracture. Multiple visits for same, will proceed with CT scan of the right hip. No evidence of DVT on examination. There are classic findings of right ATFL sprain. Lab Data Radiology Impressions Hip CT 08/12/22 11:48 IMPRESSION: 1. No acute fracture. 2. Minimal edema noted in the right medial gluteal fold. Laboratory Results HCG, Qual Negative (Negative) 08/12/22 12:05 Imaging Data Other Imaging: My impression: CT scan of the right hip without contrast was obtained. I have reviewed the images. I do not see any signs of fracture or dislocation. No acute findings during my review. Will await formal read by radiologist. Radiologist's impression: Neg for fx. ? some soft tissue edema gluteal fold Discharge Plan Discharge Patient Disposition: Home Clinical Impression: Contusion of soft tissue, Sprain of right hip, Ankle sprain Condition: Stable Prescriptions: No Action clonazepam [Klonopin] 0.5 mg tablet 0.5 mg PO BID diclofenac sodium 75 mg tablet,delayed release (DR/EC) 75 mg PO BID Qty: 30 0RF Discharge Orders: Discharge ED (Routine); Ordered 08/12/22 Ordered By: Cong Adan Referrals: Shannan Ramos DO [Primary Care Provider] - Discharge Diet: Usual diet Discharge Activity: Increase activity as tolerated Patient Instructions: Opioid Safety, Pain Management Activity Restrictions/Additional Instructions: There was no sign of any fracture or dislocation in your right hip on CT scan. You may resume normal activity by increasing little by little. You may have soft tissue injury such as contusion and sprain in the hip that will still require healing. This is best done with rest, ice, range of motion, Tylenol, nonsteroidal anti-inflammatories, and reasonable exercise. Your right ankle shows signs of sprain of the anterior talofibular ligament. This also will improve with time and the above treatments Coding Level of Care Code ED Machine Room Operator for Екатерина Fwlaurel Exam Comprehensive
[2022-08-12 12:12] VITALS: BP 116/78; PULSE 96; O2SAT 96
[2022-08-12 12:18] LABS: HCG Qualitative Urine. Negative (Negative)
== END 2022-08-12 13:45 | disposition home or self-care (01) ==
PROVIDERS: Emergency Provider Emergency Medicine; PCP Family Medicine
DX: S70.01XA Contusion of right hip, initial encounter (principal); S73.101A Unspecified sprain of right hip, initial encounter; S93.401A Sprain of unspecified ligament of right ankle, initial encounter; W01.0XXA Fall on same level from slipping, tripping and stumbling without subsequent striking against object, initial encounter
CPT/HCPCS: 73700; 81025; 99284

== ENCOUNTER 2022-09-24 09:21 | Emergency (ER) | payer BC, MEDICAID, SELFPAY ==
[2022-09-24 09:37] VITALS: BP 131/86; PULSE 79; RESP 14; O2SAT 99
[2022-09-24 09:57] VITALS: BP 126/87; PULSE 80; RESP 16; O2SAT 98
[2022-09-24] MEDS: LORazepam 1 mg Tablet PO (09:57)
--- NOTE | 2022-09-24 10:13 | W.ED.ANXIETY ---
HPI - Anxiety General: Chief Complaint: Psychiatric Symptoms Stated Complaint: anxiety, allergic to meds Time Seen by Provider: 09/24/22 09:22 Source: patient Mode of arrival: ambulatory Limitations: no limitations History of Present Illness: Patient is a 27-year-old female with a known history of anxiety here for complaints of a panic attack. Patient tells me she has had anxiety ever since she was 15 years old. Patient states previously she has been on several benzodiazepines which worked well for her anxiety however she has been seeing Dr. Bowman at [facility] and he was wanting to discontinue these medications due to long-term side effects. Patient states she has not been on any benzodiazepines in over a month. They initially placed her on hydroxyzine that she had an adverse reaction to this including itchiness and dizziness. They then switched her to propranolol which reportedly gave her hives. Patient states she woke up this morning with severe anxiety and complains of extremity tingling, chest pain, feeling outside her body , etc. She states all of her symptoms are identical to previous anxiety reactions. MD complaint: anxiety Onset (ago): hour(s) History of similar episodes: Yes Associated symptoms: Reports chest pain and palpitations; Deny chills, confusion, fever(s), headache(s), malaise, nausea, syncope or vomiting Review of Systems Const: Denies: fever(s), chills, body aches, fatigue or malaise Card: Reports: chest pain and palpitations; Denies: irregular heart rhythm, edema, swelling of feet/ankles, syncope, pre-syncope, dyspnea on exertion, orthopnea, leg pain with exertion or acrocyanosis Resp: Denies: dyspnea GI: Denies: abdominal pain, nausea, vomiting or change in bowel habits Musc: Denies: neck pain, back pain, extremity pain or joint pain Skin/Breast: Denies: rash Neuro: Denies: headache(s), numbness in extremities, weakness in extremities, sensory changes, difficulty walking, confusion, behavioral changes, difficulty communicating thoughts or seizure-like activity PFS ED PFSH: Medical History History of esophageal dilatation Psychiatric care Trouble swallowing Surgical History History of tonsillectomy and adenoidectomy Hx of appendectomy 2007 Hx of section Hx of endoscopy Social History Smoking and tobacco status: current every day smoker (pack and half ) Female Reproductive History: Date of last menstrual period: 05/04/22 Physical Exam Const: COMMON NORMALS: no acute distress, patient oriented x3, no limitations, alert and well nourished GENERAL APPEARANCE: cooperative ORIENTATION/CONSCIOUSNESS: Yes awake, Yes oriented to person, Yes oriented to place and Yes oriented to time Neck/C-Spine: GENERAL: Yes normal visual inspection Chest: COMMONS NORMALS: normal inspection of the chest and normal palpation of entire chest wall Resp: COMMON NORMALS: normal respiratory effort and clear to auscultation bilaterally AUSCULTATION: clear to auscultation bilaterally Cardio: COMMON NORMALS: regular rate and regular rhythm RATE: regular rate RHYTHM: regular rhythm Extremity: COMMON NORMALS: normal to inspection GENERAL: Yes normal exam except as noted Neuro: MYRNA COMA SCALE: document GCS findings Preston coma scale eye opening: Spontaneous Myrna coma scale verbal response: Orientated Preston coma scale motor response: Obey commands Myrna coma scale total score: 15 COMMON NORMALS: patient oriented x3 SENSORIUM/ORIENTATION: Yes alert, Yes oriented to person, Yes oriented to place and Yes oriented to time Psych: COMMON NORMALS: mental status grossly normal, Normal thought process present, cooperative, normal affect, speech normal, activity/motor behavior normal, denies hallucinations, denies homicidal ideation and denies suicidal ideation APPEARANCE: Yes grossly normal ATTITUDE: Yes calm ACTIVITY/MOTOR BEHAVIOR: Yes appropriate eye contact SPEECH: Yes normal speech MOOD & AFFECT: Yes euthymic mood THOUGHT PROCESS: Normal thought process present THOUGHT CONTENT: Yes Normal thought content present ATTENTION/CONCENTRATION: Yes attention grossly intact and Yes concentration grossly intact MEMORY/COGNITION: Yes memory grossly intact and Yes cognition grossly intact INSIGHT: Good insight present (Psych) JUDGEMENT: Good judgement present (Psych) Skin: COMMON NORMALS: no rashes or lesions noted GENERAL SKIN EXAM: no rashes or lesions noted Course Vital Signs: Vital signs: Vital Signs Pulse Rate 80 09/24/22 09:57 Respiratory Rate 16 09/24/22 09:57 Blood Pressure 126/87 09/24/22 09:57 Pulse Oximetry 98 09/24/22 09:57 Oxygen Delivery Me thod 09/24/22 09:57 [facility] - Anxiety Medical Decision Making Patient here with complaints of panic attack. She has known generalized anxiety disorder. She has been placed on hydroxyzine and propranolol by her psychiatrist at [facility] however has had adverse/allergic reactions to these medications. She was given 1mg Ativan here with complete resolution of all of her symptoms. Had a long discussion with patient about treatment of her anxiety. I do not feel like placing her back on a benzodiazepine from the ED is warranted especially if her psychiatrist is wanting to go a different direction in treating her anxiety. She states she has taken OTC diphenhydramine before without allergic/adverse reactions. Told her she could use this temporarily (50mg q 4-6 hours) until she can get a hold of Dr. Bowman for further management. Patient is not suicidal or homicidal. States she would like to go home. She is stable for discharge at this time. Discharge Plan Discharge Patient Disposition: Home Clinical Impression: Acute anxiety Condition: Stable Prescriptions: No Action olanzapine [Zyprexa] 5 mg tablet 5 mg PO .HS Qty: 30 1RF paroxetine HCl [Paxil] 20 mg tablet 20 mg PO DAILY Qty: 30 1RF propranolol 20 mg tablet 20 mg PO BID PRN (Reason: anxiety) Qty: 60 2RF Discharge Orders: Discharge ED (Routine); Ordered 09/24/22 Ordered By: Obdulia Brandt Referrals: Shannan Ramos DO [Primary Care Provider] - Patient Instructions: Anxiety (ED) Coding Level of Care Code ED Skilled Nursing Facility Counselor for Екатерина Thomas
[2022-09-24 10:34] VITALS: BP 126/87; PULSE 80; RESP 16; O2SAT 98
== END 2022-09-24 10:38 | disposition home or self-care (01) ==
PROVIDERS: Emergency Provider Physician Assistant; PCP Family Medicine
DX: F41.9 Anxiety disorder, unspecified (principal); F17.210 Nicotine dependence, cigarettes, uncomplicated
CPT/HCPCS: 99283

== ENCOUNTER → 2022-10-08 11:27 | Outpatient (BNVA) | payer OTHER, SELFPAY | PROVIDERS: PCP Family Medicine; Visit Provider Psychiatry & Neurology Psychiatry | DX: F60.3 Borderline personality disorder (principal); Z79.899 Other long term (current) drug therapy | CPT/HCPCS: 80061; 83036 ==

== ENCOUNTER 2022-10-10 19:40 | Emergency (ER) | payer BC, MEDICAID, SELFPAY ==
[2022-10-10 19:47] VITALS: BP 131/80; PULSE 97; RESP 16; TEMP 36.8; O2SAT 97; BMI 33.5
--- NOTE | 2022-10-10 20:12 | W.ED.ALLEREA ---
HPI - Allergic Reaction General: Chief complaint: Allergic Reaction Stated complaint: itchy after new medication Time Seen by Provider: 10/10/22 20:11 History of Present Illness: HPI narrative: 27-year-old female comes in today for complaints of itching of her skin. Patient had had her Zyprexa and Klonopin both stopped. Patient was then switched to buspirone. Patient states over the last day she has had increasing itching of the skin. Last dose of other medications was about 3 days ago. Patient also takes paroxetine for her depression. Review of Systems Skin/Breast: Reports: pruritus PFSH ED PFSH: Medical History History of esophageal dilatation Psychiatric care Trouble swallowing Surgical History History of tonsillectomy and adenoidectomy Hx of appendectomy 2007 Hx of section Hx of endoscopy Family History (Updated 10/08/22 @ 14:36 by Cate Whitehead LPN) Father CAD (coronary artery disease) Cancer Diabetes Congestive heart failure (CHF) Mother CAD (coronary artery disease) Diabetes Polyp of esophagus Grandfather Chronic kidney disease (CKD) on dialysis CAD (coronary artery disease) Social History (Updated 10/08/22 @ 14:45 by Cate Whitehead LPN) Smoking and tobacco status: current every day smoker (pack and half ) cigarettes Packs smoked per day: 0.5 Years cigarettes smoked: 15 [ Other cigarette details: quit once in 08/14 for 2 weeks cold turkey] Quit status (tobacco): has tried quititng Number of times tried to quit tobacco: 1 Second hand smoke exposure: No Smoking risk assessment/counseling performed?: Yes Alcohol intake: never Adopted: No Caregiver/support person: No Lives independently: Yes Household members: significant other and children Housing: Apartment Marital status: Single Number of children: 3 Highest education level completed: High School Graduate service: No Current occupational status: employed 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[employer] 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/hazards: No Pets and animals: No History of recent travel: No Leisure activites: music Sexually active: Yes Current gender identity: Male Estrellita/Christianity: None Special estrellita needs: No Agree to transfusion: Yes Financial difficulty paying for basics: Somewhat Hard Female Reproductive History: Date of last menstrual period: 09/16/22 Para: 3 Spontaneous abortions: Yes Physical Exam Const: COMMON NORMALS: alert HENMT: COMMON NORMALS: normocephalic HEAD & SCALP: normocephalic Neck/C-Spine: COMMON NORMALS: full ROM Resp: COMMON NORMALS: normal respiratory effort Cardio: COMMON NORMALS: regular rate and regular rhythm RATE: regular rate RHYTHM: regular rhythm Extremity: COMMON NORMALS: full ROM Neuro: SENSORIUM/ORIENTATION: Yes alert Skin: COMMON NORMALS: no rashes or lesions noted and turgor normal NARRATIVE SKIN EXAM: Patient has striations from scratching. GENERAL SKIN EXAM: no rashes or lesions noted and turgor normal Course Vital Signs: Vital signs: Vital Signs Temperature 98.2 F 10/10/22 19:47 Pulse Rate 88 10/10/22 20:41 Respiratory Rate 16 10/10/22 20:41 Blood Pressure 118/83 10/10/22 20:41 Pulse Oximetry 96 10/10/22 20:41 Oxygen Delivery Me thod 10/10/22 19:47 MDM - Allergic Reaction Medical Decision Making 27-year-old female comes in today with itchy skin. On exam patient has some areas where she has been scratching but no signs of significant urticaria or rash. Respirations are even lungs are clear to auscultation. Skin is warm and dry. Differential diagnosis includes pruritus, drug withdrawal, anxiety, allergic reaction, anaphylaxis. No signs of severe illness or injury is noted. Patient had recently had some medication changes and I believe it is a medication withdrawal that has caused her to have increased itching and hypersensitization of skin. Recommended Benadryl 50 mg every 4 to 6 hours as needed for itching. Patient reported understanding and agreed to plan. Discharge Plan Discharge Patient Disposition: Home Clinical Impression: Itching Medication withdrawal Qualifiers: Substance type: other psychoactive substance Qualified Code(s): F19.939 - Other psychoactive substance use, unspecified with withdrawal, unspecified Condition: Stable Prescriptions: New diphenhydramine HCl 50 mg capsule 50 mg PO Q6H PRN (Reason: itching) Qty: 30 0RF No Action paroxetine HCl 40 mg tablet 40 mg PO DAILY Qty: 30 2RF trazodone 100 mg tablet 200 mg PO .HS PRN (Reason: insomnia) Qty: 60 2RF buspirone 5 mg tablet 5 mg PO TID Qty: 90 2RF clonazepam 1 mg tablet 1 mg PO BID fluticasone propionate [Flonase Allergy Relief] 50 mcg/actuation spray,suspension 1 spray intranasal DAILY Qty: 16 0RF Rx Instructions: administer into each nostril cefdinir 300 mg capsule 300 mg PO BID 10 Days Qty: 20 0RF One-A-Day -1 27 mg iron- 800 mcg-235 mg capsule 1 cap PO DAILY Discharge Orders: Discharge ED (Routine); Ordered 10/10/22 Ordered By: Gil Doe Referrals: Blaine Anna MD [Primary Care Provider] - Discharge Diet: Usual diet Discharge Activity: Increase activity as tolerated Patient Instructions: Itchy Skin (ED) Activity Restrictions/Additional Instructions: Home and rest. Use a good emollient lotion to help comfort the skin. Avoid really hot showers or really cold showers which may irritate and dry the skin causing more itching. Drink plenty of water with medication. Follow-up with primary care for further instructions. Return to ER for new concerns such as difficulty breathing, inability to hold fluids down, or fever greater than 100.4. Coding Level of Care Code ED Feeder Associate for Chg Fwd Exam Detailed
[2022-10-10] MEDS: diphenhydrAMINE 50 mg/mL SDV 1mL IM (20:29)
[2022-10-10 20:41] VITALS: BP 118/83; PULSE 88; RESP 16; O2SAT 96
== END 2022-10-10 20:42 | disposition home or self-care (01) ==
PROVIDERS: Emergency Provider Nurse Practitioner Family; PCP Family Medicine
DX: L29.9 Pruritus, unspecified (principal); F19.939 Other psychoactive substance use, unspecified with withdrawal, unspecified; F17.210 Nicotine dependence, cigarettes, uncomplicated
CPT/HCPCS: 96372; 99283; J1200

== ENCOUNTER 2022-10-14 14:54 | Emergency (ER) | payer BC, MEDICAID, SELFPAY ==
[2022-10-14 15:05] VITALS: BP 107/69; PULSE 92; RESP 16; TEMP 36.7; O2SAT 96
--- NOTE | 2022-10-14 16:02 | W.ED.ANXIETY ---
HPI - Anxiety General: Chief Complaint: Anxiety Stated Complaint: congestion Time Seen by Provider: 10/14/22 15:25 Source: patient and family Mode of arrival: EMS Limitations: no limitations History of Present Illness: 27-year-old female presents to the ER today for continued left ear pain, cough, congestion. Patient reports she also had some chest pain associated with a cough. She reports a productive cough with green sputum. She reports cough feeling hot and cold but denies any fevers. Denies any chills. Denies any known sick contacts. Patient also reports she has recently had some medication changes. Her Klonopin was stopped and she was started on buspirone 5 mg 3 times daily. Patient reports when she takes that medication her heart rate drops. Patient reports her heart rate dropped to the 40s today. Her significant other encouraged her to only take the medication twice a day. Patient has not talked to her primary care doctor who writes this about this issue. Review of Systems General: Reports: 10 or more systems reviewed and unremarkable except in HPI and below PFSH ED PFSH: Medical History History of esophageal dilatation Psychiatric care Trouble swallowing Surgical History History of tonsillectomy and adenoidectomy Hx of appendectomy 2007 Hx of section Hx of endoscopy Family History Father CAD (coronary artery disease) Cancer Diabetes Congestive heart failure (CHF) Mother CAD (coronary artery disease) Diabetes Polyp of esophagus Grandfather Chronic kidney disease (CKD) on dialysis CAD (coronary artery disease) Social History Smoking and tobacco status: current every day smoker (pack and half ) cigarettes Packs smoked per day: 0.5 Years cigarettes smoked: 15 [ Other cigarette details: quit once in 08/14 for 2 weeks cold turkey] Quit status (tobacco): has tried quititng Number of times tried to quit tobacco: 1 Second hand smoke exposure: No Smoking risk assessment/counseling performed?: Yes Alcohol intake: never Adopted: No Caregiver/support person: No Lives independently: Yes Household members: significant other and children Housing: Apartment Marital status: Single Number of children: 3 Highest education level completed: High School Graduate service: No Current occupational status: employed 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[employer] 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/hazards: No Pets and animals: No History of recent travel: No Leisure activites: music Sexually active: Yes Current gender identity: Male Estrellita/Jewish: None Special estrellita needs: No Agree to transfusion: Yes Financial difficulty paying for basics: Somewhat Hard Female Reproductive History: Date of last menstrual period: 09/16/22 Para: 3 Spontaneous abortions: Yes Physical Exam Const: COMMON NORMALS: no acute distress, average body habitus, patient oriented x3, no limitations, healthy appearing, alert and well nourished HENMT: COMMON NORMALS: normocephalic, atraumatic, external ears normal, TM's normal bilaterally, Normal external nose present and moist oral mucous membranes HEAD & SCALP: normocephalic and atraumatic NOSE: Normal external nose present, Abnormal mucous membranes and turbinates present erythematous and Nasal discharge present clear EXTERNAL EAR: Yes external ears normal TYMPANIC MEMBRANE: TM's normal bilaterally Eye: COMMON NORMALS: conjunctivae normal CONJUNCTIVA: Yes conjunctivae normal Neck/C-Spine: COMMON NORMALS: full ROM and no lymphadenopathy Resp: COMMON NORMALS: normal respiratory effort, No retractions and clear to auscultation bilaterally EFFORT & INSPECTION: Yes able to speak in complete sentences AUSCULTATION: clear to auscultation bilaterally Cardio: COMMON NORMALS: regular rate, regular rhythm and No murmurs present (Cardio) RATE: regular rate RHYTHM: regular rhythm GI: COMMON NORMALS: Normal to inspection, nondistended, normoactive bowel sounds present, Soft to palpation and non-tender PALPATION: Yes Soft to palpation Extremity: COMMON NORMALS: normal to inspection and full ROM Neuro: COMMON NORMALS: patient oriented x3 SENSORIUM/ORIENTATION: Yes alert Psych: COMMON NORMALS: cooperative Skin: COMMON NORMALS: no rashes or lesions noted and no wounds GENERAL SKIN EXAM: no rashes or lesions noted Course ED course: Patient presents for upper respiratory symptoms. This is been going on for a couple of months. Patient has went through 2 rounds of antibiotics. She reports she finished antibiotics about 2 weeks ago before symptoms returned. She reports for the last several days she has had continued upper respiratory symptoms with a cough. She reports left ear pain also. Denies checking her temp at home however reports being hot and cold. Patient's vitals in ER are stable today. Patient also complains of heart rate dropping when taking buspirone 5 mg 3 times daily. This is written and monitored by her PCP. Vital Signs: Vital signs: Vital Signs Temperature 98.1 F 10/14/22 15:05 Pulse Rate 92 10/14/22 15:05 Respiratory Rate 16 10/14/22 15:05 Blood Pressure 107/69 10/14/22 15:05 Pulse Oximetry 96 10/14/22 15:05 Oxygen Delivery Me thod 10/14/22 15:05 MDM - Anxiety Medical Decision Making Likely patient has a viral upper respiratory infection. Exam is unremarkable. She has been through 2 rounds of antibiotics so I do not suspect this is bacterial. We will do a Medrol Dosepak to see if that helps with the ear pain and also the cough. Patient she was instructed to also buy Mucinex and take 1200 mg twice daily. As far as her buspirone goes, I recommended she take it twice a day instead of 3 times daily. If still having issues tomorrow please contact her PCP to discuss this. Push fluids. Alternate Tylenol Motrin for pain. Return to the ER with new or worsening symptoms. Patient verbalized understanding and was in agreement with the treatment plan. Critical Care Time Critical Care Time: Critical Care Time: No Discharge Plan Discharge Patient Disposition: Home Clinical Impression: Viral URI with cough Condition: Stable Prescriptions: New methylprednisolone [Medrol (Jimmie)] 4 mg tablets,dose pack See Rx Instructions .ROUTE .COMPLEX Qty: 21 0RF Rx Instructions: orally per package directions No Action paroxetine HCl 40 mg tablet 40 mg PO DAILY Qty: 30 2RF trazodone 100 mg tablet 200 mg PO .HS PRN (Reason: insomnia) Qty: 60 2RF buspirone 5 mg tablet 5 mg PO TID Qty: 90 2RF clonazepam 1 mg tablet 1 mg PO BID fluticasone propionate [Flonase Allergy Relief] 50 mcg/actuation spray,suspension 1 spray intranasal DAILY Qty: 16 0RF Rx Instructions: administer into each nostril cefdinir 300 mg capsule 300 mg PO BID 10 Days Qty: 20 0RF One-A-Day -1 27 mg iron- 800 mcg-235 mg capsule 1 cap PO DAILY diphenhydramine HCl 50 mg capsule 50 mg PO Q6H PRN (Reason: itching) Qty: 30 0RF Discharge Orders: Discharge ED (Routine); Ordered 10/14/22 Ordered By: Benita Mtz Referrals: Blaine Anna MD [Primary Care Provider] - Discharge Diet: Usual diet Discharge Activity: Resume usual activity Patient Instructions: Opioid Safety, Pain Management Activity Restrictions/Additional Instructions: Push fluids. Take Medrol Dosepak for cough/upper respiratory symptoms. Alternate Tylenol Motrin for pain. Take Mucinex as discussed. 1200 mg twice daily until symptoms improve. Take the buspirone twice daily and contact PCP tomorrow if symptoms not improving or if still having the drop in heart rate on the buspirone. Return to the ER with new or worsening symptoms. Coding Level of Care Code ED Medical Affairs Director for Екатерина Thomas
[2022-10-14 16:25] VITALS: BP 122/88; PULSE 81; RESP 18; O2SAT 97
== END 2022-10-14 16:27 | disposition home or self-care (01) ==
PROVIDERS: Emergency Provider Physician Assistant; PCP Family Medicine
DX: J06.9 Acute upper respiratory infection, unspecified (principal); F17.210 Nicotine dependence, cigarettes, uncomplicated
CPT/HCPCS: 99283

== ENCOUNTER 2022-10-14 19:55 | Emergency (ER) | payer BC, MEDICAID, SELFPAY ==
[2022-10-14 20:10] VITALS: BP 107/73; PULSE 83; RESP 18; TEMP 36.6; O2SAT 97
[2022-10-14 22:26] VITALS: BP 111/60; PULSE 90; RESP 16; O2SAT 94
--- NOTE | 2022-10-14 22:36 | ECG_ITS ---
[facility] Test Date: 2022-10-14 Pat Name: Josefa Yu Department: Room: Gender: Female Sales And Marketing Specialist: : 1995 Requested By: Ashutosh Berry Order Number: [id number] Ramesh MD: Moe Mckeon M.D. Measurements Intervals [place] Rate: 74 P: 0 TX: 0 QRS: 71 QRSD: 88 T: 61 QT: 376 QTc: 418 Interpretive Statements SINUS RHYTHM NONSPECIFIC T-WAVE ABNORMALITY Compared to ECG 05/01/2022 22:19:11 T-wave abnormality now present Electronically Signed On 10-16-2022 7:43:15 JAVA MOBILE DEVELOPER by Moe Mckeon M.D. [email or web address] [id number]
--- NOTE | 2022-10-14 22:52 | ED_ITS ---
HPI - Anxiety General: Chief Complaint: Anxiety Stated Complaint: chest pain increasing Time Seen by Provider: 10/14/22 22:21 History of Present Illness: Patient is a 27-year-old female comes to the ED with chest pain. She was seen here in the ED earlier today on October 14 for similar complaint. Patient states she has a history of acute anxiety and panic attacks. Chest pain similar to her her past acute anxiety attacks. She has been having this chest pain now for over 3 hours. Chest pain is centrally located and radiates throughout her chest. Patient takes BuSpar 3 times a day but was told to stop taking it because it lowers her heart rate. Her last dose of BuSpar was around noon today. Associated symptoms: Reports chest pain (Acute anxiety chest pain); Deny chills, fever(s), headache(s), nausea, palpitations or vomiting Review of Systems Const: Denies: fever(s), chills or fatigue Eyes: Denies: change in vision or eye discomfort ENMT: Denies: throat pain, odynophagia, nasal discharge or nasal congestion Card: Reports: chest pain (Acute anxiety chest pain); Denies: palpitations, edema, swelling of feet/ankles, dyspnea on exertion or orthopnea Resp: Denies: dyspnea, productive cough or non-productive cough GI: Denies: abdominal pain, nausea, vomiting, diarrhea, constipation or hematochezia : Denies: flank pain, dysuria or hematuria Musc: Denies: neck pain, back pain or extremity swelling Skin/Breast: Denies: rash or new lesions Neuro: Denies: headache(s), numbness in extremities or weakness in extremities Psych: Reports: anxiety and panic attacks COUNTS INCLUDE 234 BEDS AT THE [facility] ED PFSH: Medical History History of esophageal dilatation Psychiatric care Trouble swallowing Surgical History History of tonsillectomy and adenoidectomy Hx of appendectomy 2008 Hx of section Hx of endoscopy Family History Father CAD (coronary artery disease) Cancer Diabetes Congestive heart failure (CHF) Mother CAD (coronary artery disease) Diabetes Polyp of esophagus Grandfather Chronic kidney disease (CKD) on dialysis CAD (coronary artery disease) Social History Smoking and tobacco status: current every day smoker (pack and half ) basilia aguillon Packs smoked per day: 0.5 Years cigarettes smoked: 15 [ Other cigarette details: quit once in 08/14 for 2 weeks cold turkey] Quit status (tobacco): has tried quititng Number of times tried to quit tobacco: 1 Second hand smoke exposure: No Smoking risk assessment/counseling performed?: Yes Alcohol intake: never Adopted: No Caregiver/support person: No Lives independently: Yes Household members: significant other and children Housing: Apartment Marital status: Single Number of children: 3 Highest education level completed: High School Graduate service: No Current occupational status: employed 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[employer] 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/hazards: No Pets and animals: No History of recent travel: No Leisure activites: music Sexually active: Yes Current gender identity: Male Estrellita/Hinduism: None Special estrellita needs: No Agree to transfusion: Yes Financial difficulty paying for basics: Somewhat Hard Female Reproductive History: Date of last menstrual period: 09/16/22 Para: 3 Spontaneous abortions: Yes Physical Exam Const: COMMON NORMALS: no acute distress, patient oriented x3 and alert GENERAL APPEARANCE: cooperative and comfortable HENMT: COMMON NORMALS: normocephalic HEAD & SCALP: normocephalic MOUTH: Normal oral and palatal mucosa present THROAT: posterior oropharynx normal and uvula midline Neck/C-Spine: COMMON NORMALS: supple GENERAL: Yes normal visual inspection Resp: COMMON NORMALS: normal respiratory effort, No retractions, No use of accessory muscles and clear to auscultation bilaterally AUSCULTATION: clear to auscultation bilaterally Cardio: COMMON NORMALS: regular rate, regular rhythm, S1 normal heart sound present, S2 normal heart sound present, No gallops present (Cardio), No clicks present (Cardio), No murmurs present (Cardio) and Peripheral pulses 2+ throughout RATE: regular rate RHYTHM: regular rhythm HEART SOUNDS: S1 normal heart sound present and S2 normal heart sound present PERIPHERAL PULSES: Peripheral pulses 2+ throughout GI: COMMON NORMALS: Normal to inspection, nondistended, normoactive bowel sounds present, Soft to palpation, non-tender and no masses PALPATION: Yes Soft to palpation : COMMON NORMALS: Yes no CVA tenderness BLADDER/KIDNEY EXAM: Yes no CVA tenderness Back/Pelvis: COMMON NORMALS: no CVA tenderness Extremity: COMMON NORMALS: normal to inspection Neuro: COMMON NORMALS: patient oriented x3 SENSORIUM/ORIENTATION: Yes alert GAIT: Yes Normal gait present Skin: GENERAL SKIN EXAM: dry skin Course Vital Signs: Vital signs: Vital Signs Temperature 97.8 F 10/14/22 20:10 Pulse Rate 83 10/14/22 23:32 Respiratory Rate 18 10/14/22 23:32 Blood Pressure 114/65 10/14/22 23:32 Pulse Oximetry 93 10/14/22 23:32 Oxygen Delivery Me thod 10/14/22 22:26 MDM - Anxiety Medical Decision Making Patient is a 27-year-old female comes to the ED with chest pain. She was seen here in the ED earlier today on October 14 for similar complaint. Patient states she has a history of acute anxiety and panic attacks. Chest pain similar to her her past acute anxiety attacks. She has been having this chest pain now for over 3 hours. Chest pain is centrally located and radiates throughout her chest. Patient takes BuSpar 3 times a day but was told to stop taking it because it lowers her heart rate. Her last dose of BuSpar was around noon today. Vitals are stable. Exam of patient is benign and she appears in no acute acute distress. EKG shows sinus rhythm, [address] segment elevation or depression seen. She was given a dose of Ativan here in the ED and her symptoms improved. She was stable for discharge home and has an appointment with her primary care doctor tomorrow and I told her to discuss her anxiety medications with . Return ED precautions given. Patient understood and agreed with plan. EKG Data EKG 1: EKG interpretation date: 10/14/22 Interpretation: Sinus rhythm, 74 bpm, no ST segment elevation or depression seen. Discharge Plan Discharge Patient Disposition: Home Clinical Impression: Acute anxiety Condition: Stable Prescriptions: No Action paroxetine HCl 40 mg tablet 40 mg PO DAILY Qty: 30 2RF trazodone 100 mg tablet 200 mg PO .HS PRN (Reason: insomnia) Qty: 60 2RF buspirone 5 mg tablet 5 mg PO TID Qty: 90 2RF clonazepam 1 mg tablet 1 mg PO BID fluticasone propionate [Flonase Allergy Relief] 50 mcg/actuation spray,suspension 1 spray intranasal DAILY Qty: 16 0RF Rx Instructions: administer into each nostril cefdinir 300 mg capsule 300 mg PO BID 10 Days Qty: 20 0RF One-A-Day -1 27 mg iron- 800 mcg-235 mg capsule 1 cap PO DAILY diphenhydramine HCl 50 mg capsule 50 mg PO Q6H PRN (Reason: itching) Qty: 30 0RF Medrol (Jimmie) 4 mg tablets,dose pack See Rx Instructions .ROUTE .COMPLEX Qty: 21 0RF Rx Instructions: orally per package directions Discharge Orders: Discharge ED (Routine); Ordered 10/14/22 Ordered By: Ashutosh Berry Referrals: Blaine Anna MD [Primary Care Provider] - Discharge Diet: Regular Discharge Activity: Increase activity as tolerated Patient Instructions: Anxiety (ED) Activity Restrictions/Additional Instructions: Follow-up with your PCP tomorrow at your scheduled appointment. Discussed with PCP about anxiety medications since BuSpar is not working. Return to the ER or your medical provider if condition worsens. Please read and understand discharge instructions. Thank you for choosing [facility] for your healthcare needs today. Please realize this is an emergency room and that we are providing you with a medical screening exam and this may not be complete and all inclusive of all the testing and or work up that you may need to determine your ailment or severity of your illness. It is very important that you follow up as instructed or that you return to the Emergency Department should you have concerns or if your condition changes or worsens in any way. Coding Level of Care Code ED Miter Grinder Operator for Екатерина Thomas Exam Comprehensive
[2022-10-14] MEDS: LORazepam 2 mg Tablet PO (23:07)
[2022-10-14 23:32] VITALS: BP 114/65; PULSE 83; RESP 18; O2SAT 93
== END 2022-10-14 23:33 | disposition home or self-care (01) ==
PROVIDERS: Emergency Provider Physician Assistant; PCP Family Medicine
DX: F41.9 Anxiety disorder, unspecified (principal); F17.210 Nicotine dependence, cigarettes, uncomplicated
CPT/HCPCS: 93005; 99283

== ENCOUNTER 2022-10-21 17:58 | Emergency (ER) | payer BC, MEDICAID, SELFPAY ==
[2022-10-21 17:58] VITALS: BP 134/87; PULSE 79; RESP 16; TEMP 36.7; O2SAT 99
--- NOTE | 2022-10-21 18:21 | W.ED.ANXIETY ---
HPI - Anxiety General: Chief Complaint: Anxiety Stated Complaint: anxiety/cp Time Seen by Provider: 10/21/22 18:18 History of Present Illness: 27-year-old female comes in today for complaints of breakthrough anxiety. Patient takes trazodone and paroxetine routinely for her anxiety. Patient does not tolerate BuSpar due to drop in heart rate, and hydroxyzine for reported rash. Patient seems agitated and restless. Patient does not appear in pain. Patient appears nontoxic. Patient has a history of allergic rhinitis, and mental health disorder. Patient denies homicidal or suicidal thoughts. Review of Systems Psych: Reports: anxiety and mood swings PFS ED PFSH: Medical History History of esophageal dilatation Psychiatric care Trouble swallowing Surgical History History of tonsillectomy and adenoidectomy Hx of appendectomy 2007 Hx of section Hx of endoscopy Family History Father CAD (coronary artery disease) Cancer Diabetes Congestive heart failure (CHF) Mother CAD (coronary artery disease) Diabetes Polyp of esophagus Grandfather Chronic kidney disease (CKD) on dialysis CAD (coronary artery disease) Social History Smoking and tobacco status: current every day smoker (pack and half ) cigarettes Packs smoked per day: 0.5 Years cigarettes smoked: 15 [ Other cigarette details: quit once in 08/14 for 2 weeks cold turkey] Quit status (tobacco): has tried quititng Number of times tried to quit tobacco: 1 Second hand smoke exposure: No Smoking risk assessment/counseling performed?: Yes Alcohol intake: never Adopted: No Caregiver/support person: No Lives independently: Yes Household members: significant other and children Housing: Apartment Marital status: Single Number of children: 3 Highest education level completed: High School Graduate service: No Current occupational status: employed 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[employer] 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/hazards: No Pets and animals: No History of recent travel: No Leisure activites: music Sexually active: Yes Current gender identity: Male Estrellita/Confucianism: None Special estrellita needs: No Agree to transfusion: Yes Financial difficulty paying for basics: Somewhat Hard Female Reproductive History: Date of last menstrual period: 09/16/22 Para: 3 Spontaneous abortions: Yes Physical Exam Const: COMMON NORMALS: alert Neck/C-Spine: COMMON NORMALS: full ROM Resp: COMMON NORMALS: normal respiratory effort Extremity: COMMON NORMALS: normal to inspection Neuro: SENSORIUM/ORIENTATION: Yes alert Skin: COMMON NORMALS: turgor normal GENERAL SKIN EXAM: turgor normal Course Vital Signs: Vital signs: Vital Signs Temperature 98.0 F 10/21/22 17:58 Pulse Rate 79 10/21/22 17:58 Respiratory Rate 16 10/21/22 17:58 Blood Pressure 134/87 10/21/22 17:58 Pulse Oximetry 99 10/21/22 17:58 Oxygen Delivery Me thod 10/21/22 17:58 MDM - Anxiety Medical Decision Making 27-year-old female comes in today for complaints of breakthrough anxiety. Patient reports that she has nothing at home for when she has a panic attack and states that she has chest discomfort with her panic attacks. Patient recently had to stop taking buspirone due to changes in her heart rate. Patient denies any suicidal homicidal thoughts. Patient does appear agitated. Vital signs are normal. Differential diagnosis includes not limited to borderline personality disorder, anxiety disorder with panic, agitation. Patient was given 1 mg of lorazepam. Wrote a prescription for lorazepam 0.5 mg to use once daily as needed for severe symptoms. Patient reports understanding of use of medication and risk of dependence. Recommend follow-up with behavioral health care specialty or primary care in the morning for appointment. Discharge Plan Discharge Patient Disposition: Home Clinical Impression: Panic disorder Condition: Stable Prescriptions: New lorazepam 0.5 mg tablet 0.5 mg PO DAILY PRN (Reason: anxiety) Qty: 20 0RF Discontinued clonazepam 1 mg tablet 1 mg PO BID cefdinir 300 mg capsule 300 mg PO BID 10 Days Qty: 20 0RF No Action paroxetine HCl 40 mg tablet 40 mg PO DAILY Qty: 30 2RF trazodone 100 mg tablet 200 mg PO .HS PRN (Reason: insomnia) Qty: 60 2RF fluticasone propionate [Flonase Allergy Relief] 50 mcg/actuation spray,suspension 1 spray intranasal DAILY Qty: 16 0RF Rx Instructions: administer into each nostril One-A-Day -1 27 mg iron- 800 mcg-235 mg capsule 1 cap PO DAILY diphenhydramine HCl 50 mg capsule 50 mg PO Q6H PRN (Reason: itching) Qty: 30 0RF Medrol (Jimmie) 4 mg tablets,dose pack See Rx Instructions .ROUTE .COMPLEX Qty: 21 0RF Rx Instructions: orally per package directions Discharge Orders: Discharge ED (Routine); Ordered 10/21/22 Ordered By: Gil Doe Referrals: Blaine Anna MD [Primary Care Provider] - Discharge Diet: Usual diet Discharge Activity: Increase activity as tolerated Patient Instructions: Panic Attack (ED) Activity Restrictions/Additional Instructions: Continue with routine medications. Continue with behavioral modification to control anxiety attacks. Use lorazepam as needed for worsening symptoms or inability to control anxiety attack. Drink plenty of water with medications. Follow-up with primary care or behavioral health critical care physician in the morning to see if you can have your appointment moved up. Return to ER for new concerns or worsening symptoms. Coding Level of Care Code ED Cash Management Officer for Екатерина Thomas
[2022-10-21] MEDS: LORazepam 1 mg Tablet PO (18:34)
== END 2022-10-21 18:50 | disposition home or self-care (01) ==
PROVIDERS: Emergency Provider Nurse Practitioner Family; PCP Family Medicine
DX: F41.0 Panic disorder [episodic paroxysmal anxiety] (principal); F17.210 Nicotine dependence, cigarettes, uncomplicated
CPT/HCPCS: 99283

== ENCOUNTER 2022-12-04 21:48 | Emergency (ER) | payer BC, MEDICAID, SELFPAY ==
[2022-10-31 12:17] VITALS: BP 135/91; BMI 33.1
[2022-12-04 21:57] VITALS: BP 147/79; PULSE 98; RESP 16; TEMP 36.8; O2SAT 98
[2022-12-04 22:11] LABS: HCG Qualitative Urine. Negative (Negative)
--- NOTE | 2022-12-04 22:46 | W.ED.GENADLT ---
HPI - General Adult General: Chief complaint: General Medical Stated complaint: breast issues Time Seen by Provider: 12/04/22 22:46 History of Present Illness: Ms. Yu is a 27-year-old lady with history of PTSD, anxiety, psychiatric disorder presented to the emergency department for nipple discharge. She reports approximately 1 month history of breast tenderness and starting earlier had milky discharge from her nipple. She also endorses lower abdominal cramping. She reports abnormal menses previously and history of PCOS. She endorses moderate intensity symptoms however denies signs of systemic illness. She reports a history of abnormal both serum and urine tests with ultrasound revealing . She has had a tubal ligation. Patient does take paroxetine however denies any other psychiatric medication. She is uncertain of other specific details regarding this. Of this no other specific changes in health, exacerbating, or alleviating factors identified. Onset (ago): week(s) Severity: moderate Quality: aching Relieving factors: none Exacerbating factors: none Associated symptoms: Reports other; Deny fevers/chills or headache(s) Review of Systems General: Reports: 10 or more systems reviewed and unremarkable except in HPI and below Neuro: Denies: headache(s) PFSH ED PFSH: Medical History History of esophageal dilatation Psychiatric care Trouble swallowing Surgical History History of tonsillectomy and adenoidectomy Hx of appendectomy 2008 Hx of section Hx of endoscopy Family History Father CAD (coronary artery disease) Cancer Diabetes Congestive heart failure (CHF) Mother CAD (coronary artery disease) Diabetes Polyp of esophagus Grandfather Chronic kidney disease (CKD) on dialysis CAD (coronary artery disease) Social History Smoking and tobacco status: current every day smoker (pack and half ) cigarettes Packs smoked per day: 0.5 Years cigarettes smoked: 15 [ Other cigarette details: quit once in 08/14 for 2 weeks cold turkey] Quit status (tobacco): has tried quititng Number of times tried to quit tobacco: 1 Second hand smoke exposure: No Smoking risk assessment/counseling performed?: Yes Alcohol intake: never Adopted: No Caregiver/support person: No Lives independently: Yes Household members: significant other and children Housing: Apartment Marital status: Single Number of children: 3 Highest education level completed: High School Graduate service: No Current occupational status: employed 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[employer] 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/hazards: No Pets and animals: No Leisure activites: music Sexually active: Yes Current gender identity: Male Estrellita/Buddhism: None Special estrellita needs: No Agree to transfusion: Yes Financial difficulty paying for basics: Somewhat Hard Female Reproductive History: Para: 3 Spontaneous abortions: Yes Physical Exam Const: COMMON NORMALS: alert GENERAL APPEARANCE: cooperative and well developed HENMT: COMMON NORMALS: normocephalic and atraumatic HEAD & SCALP: normocephalic and atraumatic Eye: COMMON NORMALS: conjunctivae normal CONJUNCTIVA: Yes conjunctivae normal SCLERA: sclerae normal Neck/C-Spine: COMMON NORMALS: supple GENERAL: Yes trachea midline Resp: COMMON NORMALS: clear to auscultation bilaterally EFFORT & INSPECTION: Yes able to speak in complete sentences AUSCULTATION: clear to auscultation bilaterally Cardio: COMMON NORMALS: regular rate and regular rhythm RATE: regular rate RHYTHM: regular rhythm GI: COMMON NORMALS: Soft to palpation PALPATION: Yes Soft to palpation and No Tenderness to palpation present (GI) Extremity: GENERAL: Yes normal exam except as noted and No edema Neuro: COMMON NORMALS: moves all extremities SENSORIUM/ORIENTATION: Yes alert and No Orientation impaired Psych: COMMON NORMALS: mental status grossly normal and Normal thought process present THOUGHT PROCESS: Normal thought process present Course Vital Signs: Vital signs: Vital Signs Temperature 98.2 F 12/04/22 21:57 Pulse Rate 98 12/04/22 21:57 Respiratory Rate 16 12/04/22 21:57 Blood Pressure 147/79 12/04/22 21:57 Pulse Oximetry 98 12/04/22 21:57 Oxygen Delivery Me thod 12/04/22 21:[address] [facility] - General Adult Medical Decision Making 27-year-old lady with history of psychiatric disorder and tubal ligation presenting for right nipple discharge and bilateral breast engorgement and tenderness. She reports atypical history with IUP identified on ultrasound despite negative serum and urine test. I am unsure of what to make this history as this was not at our facility. Patient presents with a video that does indeed demonstrate what appears to be milk discharge from the right nipple. Patient is nontoxic and does not report any concerning history for central/pituitary cause that would warrant ED head imaging. Given atypical history we will proceed with further evaluation despite negative urine test. Similar hCG quant negative. Ultrasound without identified, patient possibly has fibroids however is not complaining of abnormal uterine bleeding. The exact cause of patient's symptoms is unclear. There are cases of paroxetine induced galactorrhea however it sounds like the patient has been on this for some period of time without recent dose change. Additional consideration is central cause however I believe that patient can have further evaluation in the outpatient setting. The results of ED evaluation were discussed with the patient including prescriptions and/or symptomatic cares (if applicable) including appropriate and responsible use, followup plan, and return precautions. The patient verbalized understanding and felt safe for discharge. Medical Records I reviewed the patient's medical records. Lab Data I reviewed the patient's lab results. Radiology Impressions Pelvis Ultrasound 12/04/22 22:56 IMPRESSION: 1. No acute findings. 2. Possible intramural uterine fibroids. Laboratory Results HCG, Qual Negative (Negative) 12/04/22 22:05 Ser , Semi-Qnt 1.00 mIU/mL 12/04/22 23:53 Discharge Plan Discharge Patient Disposition: Home Clinical Impression: Galactorrhea Condition: Stable Prescriptions: No Action paroxetine HCl 40 mg tablet 40 mg PO DAILY Qty: 30 2RF trazodone 100 mg tablet 200 mg PO .HS PRN (Reason: insomnia) Qty: 60 2RF One-A-Day -1 27 mg iron- 800 mcg-235 mg capsule 1 cap PO DAILY fluticasone propionate [Flonase Allergy Relief] 50 mcg/actuation spray,suspension 1 spray intranasal DAILY Qty: 16 0RF Rx Instructions: administer into each nostril diphenhydramine HCl 50 mg capsule 50 mg PO Q6H PRN (Reason: itching) Qty: 30 0RF Medrol (Jimmie) 4 mg tablets,dose pack See Rx Instructions .ROUTE .COMPLEX Qty: 21 0RF Rx Instructions: orally per package directions lorazepam 0.5 mg tablet 0.5 mg PO DAILY PRN (Reason: anxiety) Qty: 20 0RF Discharge Orders: Discharge ED (Routine); Ordered 12/05/22 Ordered By: Gold Kennedy Referrals: Blaine Anna MD [Primary Care Provider] - Discharge Diet: Usual diet Discharge Activity: Resume usual activity Patient Instructions: Galactorrhea (ED) Activity Restrictions/Additional Instructions: Thank you for visiting the emergency department. You were seen and evaluated for nipple discharge concerning for . The exact cause of your symptoms is unclear however as discussed may be related to medications. I do not believe that you require inpatient management at this time. Please follow-up with your primary care provider and psychiatric care provider for consideration of further testing including testing for central causes of galactorrhea as well as medication change. Incidentally you were found to have likely uterine fibroids on ultrasound. This can be followed outpatient with a BOARDING MACHINE OPERATOR physician. Return to the emergency department for uncontrolled symptoms or anything else that you are concerned about and feel needs emergency department evaluation. Coding Level of Care Code ED Speaker Mounter for Екатерина Thomas
--- NOTE | 2022-12-04 22:56 | USR_ITS ---
NOTE: Report was unsigned for reason: Order was edited. Original Signature date and time was: 12/05/2022 0029 PROCEDURE INFORMATION: Exam: US Pelvis Complete, Transabdominal and US Pelvis, Transvaginal and US Duplex Artery and Vein, Ovaries, Complete Exam date and time: 12/04/2022 11:14 PM Age: 27 years old Clinical indication: Prior surgery; Surgery date: 6+ months; Surgery type: Csections x 2, last in 2019; Patient HX: Patient is experiencing nipple discharge in common with diffuse pelvic pain x 1 month. No vaginal bleeding, negative qualitative hcg. Patient has had a tubal ligation, as well as one tubal in the past. G8 - p3 - a5 - l3; Additional info: Cramping, nipple discharge, reports history of tubal however reports history of TECHNIQUE: Imaging protocol: Real-time complete transabdominal and transvaginal pelvic ultrasound with image documentation. Transvaginal imaging was used for better evaluation of the endometrium, adnexa, and/or cervix. Real-time duplex ultrasound scan of the arterial and venous flow of the ovaries with B-mode, color Doppler flow and spectral waveform analysis. Duplex exam was performed to evaluate for torsion and other vascular conditions. COMPARISON: CT hip RT wo con* [id number] 08/12/2022 12:33 PM FINDINGS: Uterus: Uterus is unremarkable in size. Heterogeneous echotexture areas in the posterior fundus and anterior uterine body could represent multiple small intramural fibroids. Posterior fundal structure measures about 3.9 cm x 2.8 cm x 2.1 cm. Smaller anterior uterine body structure measures 2.9 cm x 1.8 cm x 1.1 cm. Endometrial complex homogeneous in appearance measures 11 mm thickness. Endometrial stripe is normal. Right ovary/adnexa: Ovary is normal. Simple follicular changes. No mass. Normal ovarian blood flow. Unremarkable arterial and venous spectral Doppler waveform pattern. Left ovary/adnexa: Ovary is normal. Simple follicular changes. No mass. Normal ovarian blood flow. Unremarkable arterial and venous spectral Doppler waveform pattern. Intraperitoneal space: No intraperitoneal fluid. Urinary bladder: Normal. [facility] US/US pelv w/transvag [id number] IMPRESSION: 1. No acute findings. 2. Possible intramural uterine fibroids.
== END 2022-12-05 00:47 | disposition home or self-care (01) ==
PROVIDERS: Emergency Provider Emergency Medicine; PCP Family Medicine
DX: O92.6 Galactorrhea (principal); F17.210 Nicotine dependence, cigarettes, uncomplicated
CPT/HCPCS: 76830; 76856; 81025; 84702; 99283

== ENCOUNTER 2022-12-12 18:47 | Emergency (ER) | payer BC, MEDICAID, SELFPAY ==
[2022-10-31 12:17] VITALS: BP 135/91; BMI 33.1
--- NOTE | 2022-12-12 18:53 | XRR_ITS ---
PROCEDURE INFORMATION: Exam: XR Chest Exam date and time: 12/12/2022 7:40 PM Age: 27 years old Clinical indication: Other: Anxiety, abdomen pain; Additional info: Cp TECHNIQUE: Imaging protocol: Radiologic exam of the chest. Views: 1 view. COMPARISON: CR XR chest 2V* [id number] 07/08/2022 10:26 AM FINDINGS: Lungs: Calcified granulomas noted in the right lung base. No consolidation. Pleural spaces: Unremarkable. No pleural effusion. No pneumothorax. Heart/Mediastinum: Unremarkable. No cardiomegaly. Bones/joints: Unremarkable. XR/XR chest 1V portable [id number] IMPRESSION: No acute findings.
--- NOTE | 2022-12-12 18:53 | ECG_ITS ---
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 Measurements Intervals [place] Rate: 78 P: 33 MS: 174 QRS: 57 QRSD: 96 T: 54 QT: 370 QTc: 421 Interpretive Statements SINUS RHYTHM Compared to ECG 10/14/2022 23:01:32 T-wave abnormality no longer present Electronically Signed On 12-13-2022 7:40:43 CDT by Moe Mckeon M.D. [email or web address]
[2022-12-12 19:03] VITALS: BP 133/87; PULSE 86; RESP 16; TEMP 36; O2SAT 98
[2022-12-12 19:52] VITALS: BP 132/83; PULSE 81; RESP 18; O2SAT 99
--- NOTE | 2022-12-12 19:54 | ED_ITS ---
HPI - Anxiety General: Chief Complaint: Anxiety Stated Complaint: anxiety, cp, abdomen pain, neausea Time Seen by Provider: 12/12/22 19:45 History of Present Illness: This 27-year-old female with a history of generalized anxiety anxiety disorder, depression and borderline personality disorder presents to the ER with anxiety. She notes that since her Paxil was stopped last week, she has been feeling more anxious. She called her psychiatrist's office (Dr. Kevin Bowman) but was told that she will not be given a refill until she is seen in the clinic on December 28. Patient is allergic to hydroxyzine and BuSpar and states that she is going through a lot of stress in her life right now. She is a single mother of 3 kids out of which one of them is autistic. She denies suicidal or homicidal thoughts. These anxiety episodes causes her to feel short of breath, intermittent chest pain and tingling in both hands. She just needs medication to help her until she sees her psychiatrist. Associated symptoms: Reports chest pain (Due to anxiety) Review of Systems General: Reports: 10 or more systems reviewed and unremarkable except in HPI and below Card: Reports: chest pain (Due to anxiety) Resp: Reports: dyspnea (Due to anxiety) Neuro: Reports: other (Tingling in the arms due to anxiety) Psych: Reports: anxiety PFSH ED PFSH: Medical History History of esophageal dilatation Psychiatric care Trouble swallowing Surgical History History of tonsillectomy and adenoidectomy Hx of appendectomy 2007 Hx of section Hx of endoscopy Family History Father CAD (coronary artery disease) Cancer Diabetes Congestive heart failure (CHF) Mother CAD (coronary artery disease) Diabetes Polyp of esophagus Grandfather Chronic kidney disease (CKD) on dialysis CAD (coronary artery disease) Social History Smoking and tobacco status: current every day smoker (pack and half ) cigarettes Packs smoked per day: 0.5 Years cigarettes smoked: 15 [ Other cigarette details: quit once in 08/14 for 2 weeks cold turkey] Quit status (tobacco): has tried quititng Number of times tried to quit tobacco: 1 Second hand smoke exposure: No Smoking risk assessment/counseling performed?: Yes Alcohol intake: never Adopted: No Caregiver/support person: No Lives independently: Yes Household members: significant other and children Housing: Apartment Marital status: Single Number of children: 3 Highest education level completed: High School Graduate service: No Current occupational status: employed 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[employer] 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/hazards: No Pets and animals: No Leisure activites: music Sexually active: Yes Current gender identity: Male Estrellita/Anabaptism: None Special estrellita needs: No Agree to transfusion: Yes Financial difficulty paying for basics: Somewhat Hard Female Reproductive History: Para: 3 Spontaneous abortions: Yes Physical Exam Const: COMMON NORMALS: no acute distress, patient oriented x3, no limitations and alert HENMT: COMMON NORMALS: normocephalic HEAD & SCALP: normocephalic Neck/C-Spine: COMMON NORMALS: full ROM and supple Chest: COMMONS NORMALS: normal inspection of the chest Resp: COMMON NORMALS: normal respiratory effort, No retractions, No use of accessory muscles and clear to auscultation bilaterally AUSCULTATION: clear to auscultation bilaterally Cardio: COMMON NORMALS: regular rate, regular rhythm and No murmurs present (Cardio) RATE: regular rate RHYTHM: regular rhythm GI: COMMON NORMALS: Normal to inspection, nondistended, normoactive bowel sounds present and non-tender : COMMON NORMALS: Yes no CVA tenderness BLADDER/KIDNEY EXAM: Yes no CVA tenderness Back/Pelvis: COMMON NORMALS: no CVA tenderness and no thoracic nor lumbar tenderness Extremity: GENERAL: Yes normal exam except as noted Neuro: COMMON NORMALS: patient oriented x3 and no focal motor deficits SENSORIUM/ORIENTATION: Yes alert Psych: COMMON NORMALS: mental status grossly normal and cooperative Course Vital Signs: Vital signs: Vital Signs Temperature 96.8 F L 12/12/22 19:03 Pulse Rate 82 12/12/22 20:03 Respiratory Rate 18 12/12/22 20:03 Blood Pressure 136/90 12/12/22 20:03 Pulse Oximetry 98 12/12/22 20:03 Oxygen Delivery Me thod 12/12/22 20:03 MDM - Anxiety Medical Decision Making Medical decision making: Patient has a history of anxiety and all the symptoms that she is having are most consistent with anxiety/panic attacks. Clinical exam is unremarkable and vital signs are stable. I will give her a prescription for as needed clonazepam but was advised to follow-up with her psychiatrist for further care. Reasons to return were discussed. Lab Data 12/12/22 19:45 12/12/22 19:45 Radiology Impressions Chest X-Ray 12/12/22 18:53 IMPRESSION: No acute findings. Laboratory Results WBC 7.0 10^3/uL (4.0-10.0) 12/12/22 19:45 RBC 4.39 10^6/uL (4.1-5.3) 12/12/22 19:45 Hgb 12.0 g/dL (11.5-15.3) 12/12/22 19:45 Hct 36.5 % (37.0-47.0) L 12/12/22 19:45 MCV 83.1 fl (81-99) 12/12/22 19:45 MCH 27.3 pg (28.0-34.0) L 12/12/22 19:45 MCHC 32.9 g/dL (30.0-36.0) 12/12/22 19:45 RDW 14.6 % (12.1-15.1) 12/12/22 19:45 Plt Count 250 10^3/cmm (130-400) 12/12/22 19:45 MPV 9.8 fL (7.4-10.4) 12/12/22 19:45 Neut % (Auto) 49.6 % 12/12/22 19:45 Lymph % (Auto) 37.9 % 12/12/22 19:45 [place] % (Auto) 8.9 % 12/12/22 19:45 Eos % (Auto) 2.9 % 12/12/22 19:45 Baso % (Auto) 0.6 % 12/12/22 19:45 Neut # (Auto) 3.46 10^3/uL (1.8-7.7) 12/12/22 19:45 Lymph # (Auto) 2.6 10^3/uL (0.8-4.8) 12/12/22 19:45 [place] # (Auto) 0.6 10^3/uL (0.2-0.9) 12/12/22 19:45 Eos # (Auto) 0.2 10^3/uL (0.0-0.8) 12/12/22 19:45 Baso # (Auto) 0.0 10^3/uL (0.0-0.1) 12/12/22 19:45 Nucleated RBC % (auto) 0 % 12/12/22 19:45 Nucleated RBCs # 0.0 /100WBC 12/12/22 19:45 Discharge Plan Discharge Condition: Stable Prescriptions: No Action trazodone 100 mg tablet 200 mg PO .HS PRN (Reason: insomnia) Qty: 60 2RF One-A-Day -1 27 mg iron- 800 mcg-235 mg capsule 1 cap PO DAILY fluticasone propionate [Flonase Allergy Relief] 50 mcg/actuation spray,suspension 1 spray intranasal DAILY Qty: 16 0RF Rx Instructions: administer into each nostril diphenhydramine HCl 50 mg capsule 50 mg PO Q6H PRN (Reason: itching) Qty: 30 0RF Medrol (Jimmie) 4 mg tablets,dose pack See Rx Instructions .ROUTE .COMPLEX Qty: 21 0RF Rx Instructions: orally per package directions lorazepam 0.5 mg tablet 0.5 mg PO DAILY PRN (Reason: anxiety) Qty: 20 0RF Referrals: Blaine Anna MD [Primary Care Provider] - Coding Level of Care Code ED Diamond Die Polisher for Екатерина Thomas
[2022-12-12 20:03] VITALS: BP 136/90; PULSE 82; RESP 18; O2SAT 98
[2022-12-12 20:08] LABS: Basophils % 0.6 %; Eosinophils # 0.2 10^3/uL (0.0-0.8); Eosinophils % 2.9 %; Hematocrit 36.5 % (37.0-47.0); Lymphocytes # 2.6 10^3/uL (0.8-4.8); Lymphocytes % 37.9 %; Mean Corpuscular HGB Conc 32.9 g/dL (30.0-36.0); Mean Corpuscular Hemoglobin 27.3 pg (28.0-34.0); Mean Corpuscular Volume 83.1 fl (81-99); Mean Platelet Volume 9.8 fL (7.4-10.4); Monocytes # 0.6 10^3/uL (0.2-0.9); Monocytes % 8.9 %; Neutrophils # 3.46 10^3/uL (1.8-7.7); Neutrophils % 49.6 %; Nucleated Red Blood Cells % 0 %; Platelet Count 250 10^3/cmm (130-400); Red Blood Count 4.39 10^6/uL (4.1-5.3); Red Cell Distribution Width 14.6 % (12.1-15.1)
[2022-12-12 20:28] LABS: Troponin(5th) Baseline 6 ng/L (0-10)
[2022-12-12 20:30] LABS: Alanine Aminotransferase 18 U/L (0-33); Albumin Level 4.8 g/dL (3.5-5.2); Alkaline Phosphatase 67 U/L (35-105); Anion Gap 15.9 (5-19); Aspartate Amino Transferase 16 U/L (0-32); Blood Urea Nitrogen 8 mg/dL (6-20); Carbon Dioxide 25 mmol/L (22-29); Chloride 103 mmol/L (98-107); Globulin 2.7 g/dL (1.3-4.6); Glomerular Filtration Rate 100.4 mL/min (90-130); Glucose 95 mg/dL (65-115); Lipase 27 U/L (13-60); Osmolality Calculated 288 mOsm/kg (285-295); Potassium 3.9 mmol/L (3.5-5.1); Sodium 140 mmol/L (136-145); Total Bilirubin 0.2 mg/dL (0.15-1.2); Total Protein 7.5 g/dL (6.6-8.7)
[2022-12-12 20:58] LABS: Bilirubin Urine Neg (Negative); Blood Urine 3+ (Negative); Glucose Urine UA Norm (Normal); Ketones Urine Negative (Negative); Leukocyte Esterase Urine Negative (Negative); Nitrate Urine Negative (Negative); Protein Urine Trace (Negative); Urine Appearance SL Hazy (CLEAR); Urine Color Yellow (Yellow); Urobilinogen Urine Norm (Negative); pH Urine 7 (5-7)
[2022-12-12 20:59] LABS: Add Urine Microscopic? YES
[2022-12-12] MEDS: LORazepam 1 mg Tablet PO (21:00)
[2022-12-12 21:02] VITALS: BP 131/89; PULSE 83; RESP 18; O2SAT 98
[2022-12-12 21:15] LABS: RBC Urine 25-40 /hpf (0-2); Squamous Epithelial Cell Urine 0-4 /hpf (0-5); WBC Urine 0-4 /hpf (0-5)
[2022-12-12 21:16] LABS: Add Urine Culture? Yes
[2022-12-12 21:21] LABS: HCG Qualitative Urine. Negative (Negative)
== END 2022-12-12 21:03 | disposition home or self-care (01) ==
PROVIDERS: Emergency Medicine; Emergency Provider Family Medicine; PCP Family Medicine
DX: F41.9 Anxiety disorder, unspecified (principal); F17.210 Nicotine dependence, cigarettes, uncomplicated
CPT/HCPCS: 71045; 80053; 81001; 81003; 81025; 83690; 84484; 85025; 87086; 93005; 99285